=== PATIENT | male | born 1940 | race Caucasian/White ===

== ENCOUNTER → 2017-05-01 | Outpatient (CLI) | payer MEDICARE, BC, SELFPAY | PROVIDERS: Visit Provider Internal Medicine | DX: R10.11 Right upper quadrant pain (principal); R05 Cough; J44.9 Chronic obstructive pulmonary disease, unspecified | CPT/HCPCS: 36415; 71020; 80053; 82150; 85025 ==

== ENCOUNTER → 2017-07-19 18:01 | Outpatient (REF) | payer MEDICARE, BC, SELFPAY ==
[2017-07-19 19:35] LABS: Uric Acid 5.6 mg/dL (2.6-7.2)
== END ==
LOC: LAB 18:01
PROVIDERS: Visit Provider Internal Medicine
DX: M10.9 Gout, unspecified (principal)
CPT/HCPCS: 84550

== ENCOUNTER → 2018-05-14 10:01 | Outpatient (CLI) | payer MEDICARE, BC, SELFPAY ==
--- NOTE | 2018-05-14 10:16 | CT_ITS ---
CT abdomen pelvis w con CLINICAL INDICATION: Right upper quadrant pain, indigestion, elevated pancreatic enzymes ITS.REASON: ABD PAIN, ELEVATED PANCREAS ENZYMES ORDERING PHYSICIAN: Clark Santillan PATIENT AGE: 77 years COMPARISON: None TECHNIQUE: 3 phase imaging is performed following contrast enhancement at 30 seconds, 60 seconds, and 5 minute delayed Axial images obtained with sagittal and coronal reformats. All CT scans at the facility use one or more dose reduction, viz: automated exposure control, ma/kV adjustment per patient size (including targeted exams where dose is matched to indication, i.e. head), or iterative reconstruction technique. PROCEDURE: Oral Contrast: Redicat IV Contrast: 75 mL of Isovue-370. FINDINGS: Lower thorax: There is a 7 mm pleural-based nodular density in the right lung base posteriorly. An additional 7 mm nodule present in the right lung base medially and posteriorly in the subpleural region. A cystic area is present in the right lung base medially 3 cm. A 5 mm nodule is present in the right lower lobe centrally. There are some other scattered smaller nodular opacities present in the lung bases. The liver, adrenal glands, and kidneys have an unremarkable appearance. There is no evidence of pancreatitis. There is a small 5 mm isodensity in the tail the pancreas best seen on series 4 image #40. This is nonspecific and too small to characterize. There has been a prior cholecystectomy. Spleen is not identified. There is a small rounded soft tissue density in the left upper quadrant at 14 mm and could represent a small splenule. Has the patient had a prior splenectomy? There are postsurgical changes of the intra-abdominal wall. Unremarkable appendix. No pelvic mass or abnormal fluid collection is evident. Prostate is slightly enlarged at 5 cm. 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 No aortic aneurysm evident. There is moderate anterior wedging at T12 with loss of height anteriorly of approximately 50%. This appears chronic. There is kyphosis at T11-T12 junction. IMPRESSION: 1. No evidence of pancreatitis. 2. 5 mm isodensity of the pancreatic tail nonspecific probably benign. Consider 6 month follow-up to confirm stability with pancreatic protocol. 3. 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 4. 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
== END ==
PROVIDERS: PCP Internal Medicine; Visit Provider Internal Medicine
DX: R10.9 Unspecified abdominal pain (principal); R74.8 Abnormal levels of other serum enzymes
CPT/HCPCS: 74177; Q9967

== ENCOUNTER → 2018-12-25 16:08 | Outpatient (CLI) | payer MEDICARE, BC, SELFPAY ==
[2018-12-25 17:29] LABS: Blood Urea Nitrogen 24 mg/dL (7-18); Creatinine,Serum 1.85 mg/dL (0.70-1.30); Estimated Glomerular Filt Rate 36 ml/min (>60); GFR (African American) 43 ML/MIN (>60)
== END ==
PROVIDERS: Visit Provider Internal Medicine
DX: Z01.818 Encounter for other preprocedural examination (principal)
CPT/HCPCS: 36415; 82565; 84520

== ENCOUNTER → 2018-12-26 09:08 | Outpatient (CLI) | payer MEDICARE, BC, SELFPAY ==
--- NOTE | 2018-12-26 09:26 | CT_ITS ---
PROCEDURE: CT CHEST WO CON CLINICAL INDICATION: RIGHT LUNG NODULE ELEVATED PANCREAS ENZYMES Pulmonary nodule follow-up COMPARISON: ABDPELW CT abdomen pelvis w con from 05/14/2018 TECHNIQUE: Axial images obtained with sagittal and coronal reformats. All CT scans at the facility use one or more dose reduction, viz: automated exposure control, ma/kV adjustment per patient size (including targeted exams where dose is matched to indication, i.e. head), or iterative reconstruction technique. FINDINGS: Atheromatous calcification noted involving the aorta and coronary arteries. Normal heart size without evidence of pericardial effusion. Aortic valve calcifications noted. There are few scattered small lymph nodes in the mediastinum. No mediastinal or hilar mass or adenopathy is evident. 4 mm noncalcified nodule right upper lobe image number 34. 4 mm noncalcified nodule within the region of the right major fissure inferiorly unchanged. 4 mm nodule right middle lobe inferiorly unchanged. 7 mm subpleural nodular opacity right lung base posteriorly unchanged subpleural nodular opacity superior segment left lower lobe medially 8 mm not imaged previously. PE 4 mm noncalcified nodule left upper lobe posteriorly. 4 mm noncalcified nodule in the lingula slightly more prominent possibly due to slice orientation artifact. There is a small pneumatocele in the right lung base unchanged. This measures 3 cm. No effusions or infiltrates. IMPRESSION: There are scattered parenchymal and subpleural pulmonary nodules most of which do not appear significantly changed. Recommend continued 6 month follow-up as some of the nodules were not previously imaged. Coronary artery and aortic valve calcifications. Dictated by: Paul Sousa MD 12/26/2018 11:50 Signed by: <Electronically signed by Paul Sousa MD in [facility]> 12/26/2018 11:50
--- NOTE | 2018-12-26 09:26 | CT_ITS ---
Procedure: CT ABDOMEN PELVIS WO CON CLINICAL INDICATION: ELEVATED PANCREAS ENZYMES Elevated pancreatic enzymes COMPARISON: ABDPELW CT abdomen pelvis w con from 05/14/2018 TECHNIQUE: Axial images obtained with sagittal and coronal reformats. All CT scans at the facility use one or more dose reduction, viz: automated exposure control, ma/kV adjustment per patient size (including targeted exams where dose is matched to indication, i.e. head), or iterative reconstruction technique. FINDINGS: Lower thorax: Please see chest CT report performed on the same day The liver, adrenal glands, pancreas, and kidneys show no acute finding. There is mild stranding of the perinephric renal fat nonspecific. No obvious pancreatic mass or peripancreatic fluid collection. There are few small lymph nodes in the peripancreatic region and portal area nonspecific and not significantly changed. No intestinal obstruction or free air. Unremarkable appendix. There is a mild amount of retained colonic feces. Small lobular soft tissue density is present in the left upper quadrant and may represent residual splenic tissue. Prior splenectomy. Postsurgical changes are present vomiting anterior abdominal wall. Prostate is enlarged at 5 cm. Urinary bladder has an unremarkable appearance. There wedging of the T12 vertebral body unchanged from the previous exam. IMPRESSION: No acute abdominal or pelvic findings. The pancreas has an unremarkable unenhanced CT appearance. Patient was not given IV contrast due to his elevated creatinine. If further evaluation of the pancreas is desired, MRI with gadolinium enhancement may be performed.. Dictated by: Paul Sousa MD 12/26/2018 11:59 Signed by: <Electronically signed by Paul Sousa MD in [facility]> 12/26/2018 11:59
== END ==
PROVIDERS: PCP Internal Medicine; Visit Provider Internal Medicine
DX: R74.8 Abnormal levels of other serum enzymes (principal); R91.1 Solitary pulmonary nodule
CPT/HCPCS: 71250; 74176

== ENCOUNTER → 2019-03-03 10:11 | Outpatient (POV) | payer MEDICARE, BC, SELFPAY | PROVIDERS: Visit Provider Dermatology | DX: Z00.00 Encounter for general adult medical examination without abnormal findings (principal) ==

== ENCOUNTER → 2019-04-15 09:43 | Outpatient (CLI) | payer MEDICARE, BC, SELFPAY ==
[2019-04-16 18:48] LABS: Chol/HDL Ratio 2.9 (1-3.5); Cholesterol 146 mg/dL (140-200); HDL Cholesterol 51 mg/dL (27-67); LDL Cholesterol 46 mg/dL (0-130); Triglycerides 243 mg/dL (30-200); VLDL Cholesterol 49 mg/dL (0-40)
== END ==
PROVIDERS: Visit Provider Internal Medicine Cardiovascular Disease
DX: E78.5 Hyperlipidemia, unspecified (principal)
CPT/HCPCS: 36415; 80061; 80076

== ENCOUNTER → 2019-07-09 13:13 | Outpatient (CLI) | payer MEDICARE, BC, SELFPAY ==
--- NOTE | 2019-07-09 13:15 | CT_ITS ---
PROCEDURE: CT CHEST WO CON CLINICAL INDICATION: LUNG NODULE Follow-up lung nodule COMPARISON: CT CHEST WO CON from 12/26/2018 TECHNIQUE: Axial images obtained with sagittal and coronal reformats. All CT scans at the facility use one or more dose reduction, viz: automated exposure control, ma/kV adjustment per patient size (including targeted exams where dose is matched to indication, i.e. head), or iterative reconstruction technique. FINDINGS: HEART AND MEDIASTINAL STRUCTURES: There is extensive coronary artery calcification and/or stents noted. Aortic valve calcification also present. Normal heart size. No mediastinal or hilar mass or adenopathy. LUNGS AND PLEURAL SPACES: There are scattered small noncalcified nodules which are stable compared to the previous exam. No suspicious nodules are evident. There is some pleural thickening in the left lung base posteriorly not significantly changed. No new nodules are identified. No central obstructing lesions. No effusions or infiltrates. Pneumatocele is present in the right lower lobe as before BONY STRUCTURES: Degenerative changes thoracic spine UPPER ABDOMEN: Unremarkable. ADDITIONAL FINDINGS: No other significant abnormalities. IMPRESSION: Stable CT appearance of the chest. No change in the multiple small pulmonary nodules Coronary artery disease with aortic valve calcification. Dictated by: Paul Sousa MD 07/10/2019 10:11 Electronically signed by Paul Sousa MD in [facility] 07/10/2019 10:11
== END ==
PROVIDERS: PCP Internal Medicine; Visit Provider Internal Medicine
DX: R91.8 Other nonspecific abnormal finding of lung field (principal); R91.1 Solitary pulmonary nodule
CPT/HCPCS: 71250

== ENCOUNTER → 2019-07-14 13:51 | Outpatient (CLI) | payer MEDICARE, BC, SELFPAY ==
--- NOTE | 2019-07-14 13:56 | CT_ITS ---
PROCEDURE: CT ABDOMEN WO CON CLINICAL HISTORY: ABNORMAL PANCREAS TAIL, ELEVATED PANCREAS Elevated pancreatic enzymes COMPARISON: CT ABDOMEN PELVIS WO CON from 12/26/2018 CT CHEST WO CON from 07/09/2019 TECHNIQUE: Axial images obtained with sagittal and coronal reformats. All CT scans at the facility use one or more dose reduction, viz: automated exposure control, ma/kV adjustment per patient size (including targeted exams where dose is matched to indication, i.e. head), or iterative reconstruction technique. FINDINGS: There are coronary artery and aortic valve calcifications noted. Small pneumatocele is present in the right lung base medially. There are multiple parenchymal opacities in the right lower lobe. Several of these opacities in the right lung base posteriorly were not present on the previous study of 07/09/2019 and could be infectious or inflammatory changes. There is a stable 6 mm subpleural nodule in the right lower lobe posterior laterally. The liver, adrenal glands, and kidneys have an unremarkable unenhanced appearance. There has been a prior cholecystectomy and a prior splenectomy. There is an 8 mm area decreased attenuation within the tip of the tail of the pancreas suggesting a small cystic lesion. The pancreas otherwise has an unremarkable appearance No intestinal obstruction or free air. No evidence of appendicitis. Multiple abdominal wall clips noted on the left anteriorly. There is chronic wedging of the T12 vertebral body. IMPRESSION: 1. No evidence of acute pancreatitis. There may be a small cystic lesion at the lateral tip of the tail of the pancreas at 8 mm. This could be better evaluated with MRI if clinically warranted. 2. New opacities in the right lower lobe posteriorly which could be infectious or inflammatory. Neoplastic process not excluded although felt to be less likely due to the fact these were not present on 07/09/2019 Dictated by: Paul Sousa MD 07/15/2019 11:20 Electronically signed by Paul Sousa MD in [facility] 07/15/2019 11:20
== END ==
PROVIDERS: PCP Internal Medicine; Visit Provider Internal Medicine
DX: K86.89 Other specified diseases of pancreas (principal)
CPT/HCPCS: 74150

== ENCOUNTER → 2020-01-18 12:23 | Outpatient (CLI) | payer MEDICARE, BC, SELFPAY ==
--- NOTE | 2020-01-18 12:29 | CT_ITS ---
PROCEDURE: CT CHEST WO CON CLINICAL INDICATION: LUNG NODULES F/u lung nodules prior 07/09/19 COMPARISON: CT CT CHEST WO CON from 12/26/[address] CHEST WO CON from 07/09/2019 TECHNIQUE: Axial images obtained with sagittal and coronal reformats. All CT scans at the facility use one or more dose reduction, viz: automated exposure control, ma/kV adjustment per patient size (including targeted exams where dose is matched to indication, i.e. head), or iterative reconstruction technique. FINDINGS: There has been an interval TAVR. Coronary artery calcifications and/or stents are present. There are scattered small mediastinal lymph nodes. Mitral valve annular calcifications noted. Scattered small nodes are present in the axilla. There are scattered subpleural and parenchymal pulmonary nodules once again noted which do not appear significantly changed. No new nodules are evident. No effusions or infiltrates. Right basilar pneumatocele once again noted unchanged. Suspect COPD Upper abdominal images show prior cholecystectomy. There is chronic wedging of T12 not significantly changed. IMPRESSION: 1. Stable bilateral pulmonary nodules. 2. Interval TAVR 3. No acute finding Dictated by: Paul Sousa MD 01/19/2020 08:24 Paul Sousa MD in [facility] 01/19/2020 08:24
== END ==
PROVIDERS: PCP Internal Medicine; Visit Provider Internal Medicine
DX: R91.1 Solitary pulmonary nodule (principal)
CPT/HCPCS: 71250

== ENCOUNTER 2020-12-27 10:50 | Emergency (ER) | payer MEDICARE, BC, SELFPAY ==
[2020-12-27 11:20] VITALS: BP 107/63; PULSE 68; RESP 16; TEMP 36.9; O2SAT 96; BMI 28.8
--- NOTE | 2020-12-27 11:36 | XR_ITS ---
PROCEDURE: XR CHEST PORTABLE CLINICAL HISTORY: cough COMPARISON: DX CXR CHEST(2 VIEWS-NOT PORTABLE) from 05/01/[address] CHEST WO CON from 01/18/2020 FINDINGS: There is mild cardiomegaly without failure. Atelectatic changes are present in the left lung base. Mild pleural thickening versus skin fold artifact in the right lower lung zone laterally probably unchanged given difference in inspiration. No acute bony abnormalities. IMPRESSION: Mild left lower lobe atelectasis with cardiomegaly Dictated by: Paul Sousa MD 12/27/2020 12:33 Paul Sousa MD in [facility] 12/27/2020 12:35
--- NOTE | 2020-12-27 11:38 | [facility].EDGENADL ---
ED Disposition Clinical Impression: COVID-19 Disposition: Home, Self-Care Condition on Discharge: Fair Instructions: DI for COVID-19 (Suspected or Confirmed ) Additional Instructions: You have been evaluated for generalized malaise, cough. Diagnosed with COVID-19. Please call your primary care doctor for follow-up. You may benefit from an infusion of monoclonal antibody. Continue taking steroids as prescribed. Return to the emergency department at once for any new or worsening symptoms. Referrals: Clark Santillan [Primary Care Provider] - Time of Disposition: 14:04 - Critical Care Critical Care Time: No Attestation: On 12/27/20, the high probability of a clinically significant, sudden or life threatening deterioration of the following system(s) required my full and direct attention, intervention and personal management. The time I documented below is in addition to time spent performing reported procedures but includes the following listed in this critical care notation. Medical Decision Making - Medical Records Medical records reviewed: Yes: I reviewed the patient's medical records. - Beka Inquiry Pt receiving controlled substance: No Vital Signs: 12/27/20 11:20 Temperature 98.4 F Temperature Source Oral Pulse Rate [Left Radial] 68 Respiratory Rate 16 Blood Pressure [Left Arm] 107/63 L Blood Pressure Mean [Left Arm] 77 Blood Pressure Source [Left Arm] Automatic Cuff Blood Pressure Position [Left Arm] Sitting 02 Sat by Pulse Oximetry 96 Oxygen Delivery Method Room Air - Lab Data Lab Results 12/27/20 12:10: WBC 13.9 H, RBC 4.49 L, Hgb 15.0, Hct 46.2, MCV 102.7 H, MCH 33.4 H, MCHC 32.5, RDW 14.2, Plt Count 348, MPV 9.0, Neut % (Auto) 82.8 H, Lymph % (Auto) 12.0, Finney % (Auto) 4.9, Eos % (Auto) 0.1, Baso % (Auto) 0.2, Neut # (Auto) 11.5 H, Lymph # (Auto) 1.7, Finney # (Auto) 0.7, Eos # (Auto) 0.0, Baso # (Auto) 0.0 12/27/20 12:10: Sodium 134 L, Potassium 5.1, Chloride 104, Carbon Dioxide 20 L, Anion Gap 15.1 H, BUN 36 H, Creatinine 1.80 H, Estimated Creat Clear 40, Estimated GFR 36 L, Est GFR ( Amer) 44 L, Glucose 168 H, Calcium 8.8, Total Bilirubin 0.3, AST 32, ALT 19, Alkaline Phosphatase 83, Total Protein 7.3, Albumin 3.8, Globulin 3.5 H, Albumin/Globulin Ratio 1.1 12/27/20 12:10: SARS-CoV-2 (PCR) Detected A, Influenza A Untype (PCR) Not detected, Influenza Type B (PCR) Not detected Result diagrams: 12/27/20 12:10 12/27/20 12:10 Orders (Tests/Meds): ORDERS Category Date Time Status EKG Request [ECG Request by /Geetha] Stat Y 12/27/20 11:36 Ordered - Radiology Data #1 Image(s): Chest Image Reviewed: Yes I reviewed the patient's radiology results, Yes I reviewed the patient's radiology image IMPRESSION: Mild left lower lobe atelectasis with cardiomegaly Medical Decision Narrative: In summary this is an 80-year-old male presenting to the emergency department with cough, chest congestion, shortness of breath. Patient clinically stable on arrival. He appears to feel unwell, but nontoxic. Concern for COVID-19, pneumonia, bronchitis, upper respiratory infection. Will obtain CBC, CMP, Covid test, chest x-ray. Labs show elevated white blood cell count at 14,000. Neutrophil predominance. Creatinine elevated at 1.8. Patient has chronic kidney disease and his creatinine was 1.85 two years ago. Chest x-ray shows no focal opacity or multifocal pneumonia. Covid positive. On reassessment patient is tolerating oral intake. Continues to have generalized malaise, but vital signs are stable. Will place referral for monoclonal antibody infusion. Close PCP follow-up. Continue taking steroids. General Adult HPI - General Stated complaint: soa, cough Time Seen by Provider: 12/27/20 11:38 Mode of Arrival: Ambulatory Source of Information: Patient Limitations: No Limitations - History of Present Illness HPI narrative: 80-year-old male presenting to the emergency department
[2020-12-27 12:36] LABS: Influenza A, PCR Not Detected (NotDetected); Influenza B, PCR Not Detected (NotDetected)
[2020-12-27 12:48] LABS: Basophils % 0.2 % (0.1-2.0); Eosinophils % 0.1 % (0.1-12.0); Hematocrit 46.2 % (42.0-52.0); Lymphocytes # 1.7 K/mm3 (0.7-4.5); Mean Corpuscular HGB Conc 32.5 g/dL (31.8-35.4); Mean Corpuscular Hemoglobin 33.4 pg (27.0-31.2); Mean Corpuscular Volume 102.7 fl (80-94); Monocytes # 0.7 K/mm3 (0.1-1.0); Monocytes % 4.9 % (1.7-9.3); Neutrophils # 11.5 K/mm3 (1.8-7.8); Neutrophils % 82.8 % (37.0-80.0); Platelet Count 348 K/mm3 (142-424); Red Blood Count 4.49 M/mm3 (4.60-6.20); Red Cell Distribution Width 14.2 % (11.5-17.5); White Blood Count 13.9 K/mm3 (4.8-10.8)
[2020-12-27 12:59] LABS: Coronavirus 19, PCR Detected (NotDetected)
[2020-12-27 13:15] LABS: Chloride 104 mmol/L (98-107); Potassium 5.1 mmoL/L (3.5-5.1); Sodium 134 mmol/L (136-145)
[2020-12-27 13:18] LABS: Alanine Aminotransferase 19 U/L (12-78); Albumin Level 3.8 g/dl (3.5-5.0); Albumin/Globulin Ratio 1.1 (1.1-1.8); Alkaline Phosphatase 83 U/L (38-126); Anion Gap 15.1 mEq/L (5-15); Aspartate Amino Transferase 32 U/L (17-59); Bilirubin,Total 0.3 mg/dl (0.2-1.3); Blood Urea Nitrogen 36 mg/dl (9-20); Calcium 8.8 mg/dl (8.4-10.2); Carbon Dioxide 20 mmol/L (22.0-30.0); Creatinine Clearance Estimated 40 mL/min (50-200); Estimated Glomerular Filt Rate 36 ml/min (>60); GFR (African American) 44 ML/MIN (>60); Globulin 3.5 g/dL (1.3-3.2); Glucose 168 mg/dl (74-100); Total Protein,Serum 7.3 g/dl (6.3-8.2)
[2020-12-27 14:47] VITALS: BP 115/73; PULSE 58; RESP 18; TEMP 36.4; O2SAT 95
== END 2020-12-27 14:50 | disposition home or self-care (01) ==
LOC: UTC 10:54 → ER 11:19
PROVIDERS: Emergency Provider Emergency Medicine; PCP Internal Medicine
DX: U07.1 COVID-19 (principal)
CPT/HCPCS: 71045; 80053; 85025; 99283; U0003

== ENCOUNTER 2020-12-28 10:14 | Outpatient (CLI) | payer MEDICARE, BC, SELFPAY ==
[2020-12-28] VITALS (8 sets, daily range): BP systolic 124–141; BP diastolic 68–80; PULSE 70–82; RESP 16–20; TEMP 36.9; O2SAT 91–94
== END 2020-12-28 12:45 | disposition home or self-care (01) ==
PROVIDERS: PCP Internal Medicine; Visit Provider Internal Medicine
DX: U07.1 COVID-19 (principal)
CPT/HCPCS: 96365

== ENCOUNTER → 2021-03-08 14:38 | Outpatient (CLI) | payer MEDICARE, BC, SELFPAY ==
--- NOTE | 2021-03-08 14:41 | CT_ITS ---
PROCEDURE: CT CHEST WO CON CLINICAL INDICATION: LUNG NODULES COMPARISON: CT CT CHEST WO CON from 01/18/2020 TECHNIQUE: Axial images obtained with sagittal and coronal reformats. All CT scans at the facility use one or more dose reduction, viz: automated exposure control, ma/kV adjustment per patient size (including targeted exams where dose is matched to indication, i.e. head), or iterative reconstruction technique. FINDINGS: HEART AND MEDIASTINAL STRUCTURES: Small mediastinal lymph nodes are present. There is coronary artery calcification with stents present. Prior TAVR. No evidence of aortic aneurysm. LUNGS AND PLEURAL SPACES: Multifocal a bilateral areas of ground-glass attenuation with scattered atelectatic changes are present mainly in the upper lobes.. Scattered subpleural and parenchymal nodules are once again noted unchanged. There is some mild pleural thickening in the left lower lobe posterior laterally unchanged. Small pneumatocele in the right lower lobe posterior medially is stable. No new nodules identified. 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 Postsurgical changes abdominal wall anteriorly on the left. ADDITIONAL FINDINGS: Small nodes are present in the axilla IMPRESSION: 1. Interval development of multifocal ground-glass opacities mainly in the upper lobes on both sides. Covid19 pneumonia would be considered. Other etiologies not excluded. 2. No change in the small bilateral pulmonary nodules. Dictated by: Paul Sousa MD 03/09/2021 08:25 Paul Sousa MD in [place] 03/09/2021 08:25
== END ==
PROVIDERS: PCP Internal Medicine; Visit Provider Internal Medicine
DX: R91.1 Solitary pulmonary nodule (principal)
CPT/HCPCS: 71250

== ENCOUNTER 2021-05-08 14:27 | Emergency (ER) | payer MEDICARE, BC, SELFPAY ==
[2021-05-08 14:46] VITALS: BP 167/86; PULSE 64; RESP 19; TEMP 36.5; O2SAT 96; BMI 29.5
--- NOTE | 2021-05-08 15:08 | [facility].EDGENADL ---
ED Disposition Clinical Impression: Bitten by erika Qualifiers: Encounter type: initial encounter Qualified Code(s): W55.51XA - Bitten by erika, initial encounter Disposition: Home, Self-Care Condition on Discharge: Good Instructions: Animal Bites Additional Instructions: You have been given a prescription for antibiotics. Please take as prescribed. Please continue to keep your wound clean and dry and please keep a close eye on your wound for infection. Be advised that you will need further rabies vaccine on day 3, 7 and 14. If your condition worsens or any other concerns arise, please return to the emergency department. Referrals: Clark Santillan [Primary Care Provider] - - Critical Care Critical Care Time: No Attestation: On 05/08/21, the high probability of a clinically significant, sudden or life threatening deterioration of the following system(s) required my full and direct attention, intervention and personal management. The time I documented below is in addition to time spent performing reported procedures but includes the following listed in this critical care notation. Medical Decision Making - Medical Records Medical records reviewed: Yes: I reviewed the patient's medical records. - Beka Inquiry Pt receiving controlled substance: No Vital Signs: 05/08/21 14:46 Temperature 97.7 F Temperature Source Oral Pulse Rate [Right Radial] 64 Respiratory Rate 19 Blood Pressure [Right Arm] 167/86 H Blood Pressure Mean [Right Arm] 113 Blood Pressure Source [Right Arm] Automatic Cuff Blood Pressure Position [Right Arm] Sitting 02 Sat by Pulse Oximetry 96 Oxygen Delivery Method Room Air Orders (Tests/Meds): ED MEDICATIONS Discontinued Medications Generic Name Dose Route Start Last Admin Trade Name Freq PRN Reason Stop Dose Admin Rabies Immune Globulin 1,760 unit 05/08/21 15:14 05/08/21 16:00 Rabies Immune Globulin/Pf 300 Unit/Ml Vial IM 05/08/21 15:15 1,760 unit ONCE ONE Administration Rabies Vaccine 2.5 unit 05/08/21 15:14 05/08/21 15:47 Rabies Vaccine (Pcec)/Pf 2.5 Unit Vial IM 05/08/21 15:15 2.5 unit .ONCE ONE Administration Tetanus/Diphtheria Toxoids 0.5 ml 05/08/21 14:52 05/08/21 15:57 Tetanus-Diphth Toxoid, Adult 0.5ml Syr IM 05/08/21 14:53 0.5 ml .ONCE ONE Administration Medical Decision Narrative: Patient is an 80-year-old male presenting with a chief complaint of recurrent bite to the left index finger. Differential diagnosis includes, but is not limited to, underlying fracture, soft tissue injury, penetrating trauma, exposure to rabies and tetanus. On initial exam, patient is hemodynamically stable and nontoxic-appearing. Patient was evaluated with x-ray of his left hand and given rabies prophylaxis including immunoglobulin. He was given Rx for augmentin and advised that he will require further rabies prophylaxis at day 3, 7 and 14. Patient was counseled on wound care, given strict return precautions to monitor for infection and discharged in stable condition. General Adult HPI - General Chief complaint: Animal Bite Stated complaint: a/o racoon bit left middle finger Time Seen by Provider: 05/08/21 14:45 Mode of Arrival: Ambulatory Limitations: No Limitations Description of Symptoms (Recalled from ER Triage Doc. by RN): Pt stated that he was trying to get a racoon out of a cage and it bit her left middle finger, and took his finger nail off. - History of Present Illness HPI narrative: Patient is an 80-year-old male with past medical history significant for diabetes is presenting for chief complaint of raccoon bite left index finger approximately 3 hours prior to presentation. Patient states he does not remember his last tetanus shot and suffered a penetrating injury to the finger pad of the left index finger. Associated symptoms include pain and injury to the fingernail. He denies any other injuries. - Related Data Allergies Allergy/A
--- NOTE | 2021-05-08 15:13 | XR_ITS ---
FINAL REPORT CLINICAL HISTORY: r/o fx raccoon but end of 3rd finger FINDINGS: LEFT HAND FINDINGS: 2 views show no evidence of an acute, displaced fracture or dislocation. 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 There are mild vascular calcifications. The soft tissues are unremarkable. IMPRESSION: No acute bony abnormality. Reviewed, Interpreted and Dictated by Walter Jarrett MD Transcribed by Gaby Castaneda Authenticated by Walter Jarrett MD on 05/08/2021 04:57:41 PM [facility]
[2021-05-08 17:26] VITALS: BP 177/98; PULSE 60; RESP 19; TEMP 36.9; O2SAT 95
== END 2021-05-08 17:26 | disposition home or self-care (01) ==
PROVIDERS: Emergency Provider Emergency Medicine; PCP Internal Medicine
DX: S61.331A Puncture wound without foreign body of left index finger with damage to nail, initial encounter (principal); W55.51XA Bitten by raccoon, initial encounter; Z23 Encounter for immunization
CPT/HCPCS: 73120; 90375; 90471; 90675; 90714; 99282

== ENCOUNTER 2021-05-11 09:05 | Outpatient (CLI) | payer MEDICARE, BC, SELFPAY ==
[2021-05-11 09:55] VITALS: BP 142/73; PULSE 80; RESP 18; TEMP 36.8; O2SAT 98
== END 2021-05-11 09:55 | disposition home or self-care (01) ==
LOC: INF 09:07
PROVIDERS: PCP Internal Medicine; Visit Provider Student in an Organized Health Care Education/Training Program
DX: S61.301A Unspecified open wound of left index finger with damage to nail, initial encounter (principal); W55.51XA Bitten by raccoon, initial encounter; Z29.14 Encounter for prophylactic rabies immune globulin
CPT/HCPCS: 90675; 96372

== ENCOUNTER 2021-05-15 09:26 | Outpatient (CLI) | payer MEDICARE, BC, SELFPAY ==
[2021-05-15 09:47] VITALS: BP 136/79; PULSE 62; RESP 18; TEMP 36.6; O2SAT 98
== END 2021-05-15 09:47 | disposition home or self-care (01) ==
LOC: INF 09:27
PROVIDERS: PCP Internal Medicine; Visit Provider Student in an Organized Health Care Education/Training Program
DX: S61.301A Unspecified open wound of left index finger with damage to nail, initial encounter (principal); W55.51XA Bitten by raccoon, initial encounter; Z29.14 Encounter for prophylactic rabies immune globulin
CPT/HCPCS: 90675; 96372

== ENCOUNTER 2021-05-22 09:46 | Outpatient (CLI) | payer MEDICARE, BC, SELFPAY ==
[2021-05-22 10:15] VITALS: BP 152/82; PULSE 63; RESP 18; TEMP 36.8; O2SAT 96
== END 2021-05-22 10:30 | disposition home or self-care (01) ==
PROVIDERS: PCP Internal Medicine; Visit Provider Student in an Organized Health Care Education/Training Program
DX: W55.51XA Bitten by raccoon, initial encounter; Z29.14 Encounter for prophylactic rabies immune globulin; S61.301A Unspecified open wound of left index finger with damage to nail, initial encounter
CPT/HCPCS: 90675; 96372

== ENCOUNTER → 2021-06-26 14:48 | Outpatient (CLI) | payer MEDICARE, BC, SELFPAY ==
--- NOTE | 2021-06-26 14:54 | XR_ITS ---
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 There is no acute fracture or dislocation. There is a large accessory navicular. Hammertoe deformity is noted of the second through fifth digits. Mild vascular calcifications are seen. Visualized joint spaces are normally aligned. IMPRESSION: No acute bony abnormality. Reviewed, Interpreted and Dictated by Walter Jarrett MD Transcribed by Karissa Lyman Authenticated by Walter Jarrett MD on 06/26/2021 04:07:29 PM [facility]
== END ==
PROVIDERS: PCP Internal Medicine; Visit Provider Internal Medicine
DX: M79.671 Pain in right foot (principal); M20.41 Other hammer toe(s) (acquired), right foot
CPT/HCPCS: 73630

== ENCOUNTER → 2021-09-19 14:20 | Outpatient (CLI) | payer MEDICARE, BC, SELFPAY ==
--- NOTE | 2021-09-19 14:27 | XR_ITS ---
FINAL REPORT CLINICAL HISTORY: RT ELBOW PAIN FINDINGS: RIGHT ELBOW 3 views were obtained. There is no acute fracture or dislocation. There are moderate degenerative changes. There is a small chronic calcification adjacent to the olecranon. There is a chronic calcification adjacent to the lateral epicondyle. There is a probable joint effusion. There is irregularity of the radial head that may represent sequela of prior fracture. IMPRESSION: Probable joint effusion. Moderate degenerative change with chronic calcifications. Irregularity of the radial head may represent sequela of prior fracture. Reviewed, Interpreted and Dictated by Jez Gonzales III, MD Transcribed by Aldo Bloom Authenticated by Jez Gonzales III, MD on 09/19/2021 03:41:24 PM [facility]
--- NOTE | 2021-09-19 14:27 | XR_ITS ---
FINAL REPORT CLINICAL HISTORY: RT HAND PAIN FINDINGS: 3 views of the right hand were obtained. There is no acute fracture or dislocation. There are mild and moderate degenerative changes greatest involving the triscaphe joint. Vascular calcifications are present. IMPRESSION: Mild and moderate degenerative changes. Reviewed, Interpreted and Dictated by Jez Gonzales III, MD Transcribed by Aldo Bloom Authenticated by Jez Gonzales III, MD on 09/19/2021 03:19:[address] [facility]
--- NOTE | 2021-09-19 14:27 | XR_ITS ---
FINAL REPORT CLINICAL HISTORY: RT WRIST PAIN FINDINGS: 3 views of the right wrist were obtained. There is no acute fracture or dislocation. There are mild and moderate degenerative changes greatest involving the triscaphe joint. Vascular calcifications are present. IMPRESSION: Mild and moderate degenerative changes. Reviewed, Interpreted and Dictated by Jez Gonzales III, MD Transcribed by Aldo Bloom Authenticated by Jez Gonzales III, MD on 09/19/2021 03:19:31 PM [facility]
--- NOTE | 2021-09-19 14:27 | XR_ITS ---
FINAL REPORT CLINICAL HISTORY: right forearm pain FINDINGS: 2 views of the right forearm were obtained. There is no acute fracture or dislocation. There are moderate degenerative changes at the elbow and radial aspect of the wrist. Vascular calcifications are present. IMPRESSION: Moderate degenerative change. Reviewed, Interpreted and Dictated by Jez Gonzales III, MD Transcribed by Aldo Bloom Authenticated by Jez Gonzales III, MD on 09/19/2021 03:41:[address] [facility]
== END ==
PROVIDERS: PCP Internal Medicine; Visit Provider Internal Medicine
DX: M79.601 Pain in right arm (principal); M79.631 Pain in right forearm; M25.521 Pain in right elbow
CPT/HCPCS: 73080; 73090; 73110; 73130

== ENCOUNTER → 2022-01-24 14:25 | Outpatient (CLI) | payer MEDICARE, BC, SELFPAY ==
--- NOTE | 2022-01-24 14:30 | CT_ITS ---
FINAL REPORT TECHNIQUE: Axial images through the abdomen and pelvis were performed without contrast. This study was performed with techniques to keep radiation doses as low as reasonably achievable, (ALARA). Individualized dose reduction techniques using automated exposure control or adjustment of mA and/or kV according to the patient's size were employed. CLINICAL HISTORY: GROSS HEMATURIA, NO PAIN COMPARISON: 12/26/2018 FINDINGS: ABDOMEN: There is bulla or pneumatocele in the right lung base. There is stable pleural and parenchymal scarring at the left base. The heart size is normal. The liver is homogeneous. The gallbladder is absent. The spleen is identified, presumably surgically absent. No adrenal mass is identified. The aorta is normal in caliber. There is no significant free fluid or adenopathy. There is no nephrolithiasis. There is no hydronephrosis. PELVIS: The appendix is unremarkable. There is heterogeneous debris in the dependent portion of the urinary bladder, probably due to clot or hemorrhage. Finding is well seen on images 89-93 of series 3. There are bilateral L5 pars defects. There is no significant free fluid or adenopathy. IMPRESSION: Heterogeneous debris in the urinary bladder probably related to hemorrhage. Recommend urologic evaluation and cystoscopy. Reviewed, Interpreted and Dictated by Walter Jarrett MD Transcribed by Chelo Matthew Authenticated and [facility]
== END ==
PROVIDERS: PCP Internal Medicine; Visit Provider Internal Medicine
DX: R31.0 Gross hematuria (principal)
CPT/HCPCS: 74176

== ENCOUNTER 2022-02-20 13:56 | Observation (INO) | payer MEDICARE, BC, SELFPAY ==
[2022-02-20] VITALS (10 sets, daily range): BP systolic 148–190; BP diastolic 76–122; PULSE 47–69; RESP 18–20; TEMP 36.6–36.7; O2SAT 92–100; BMI 28.1; BMI 28.4
--- NOTE | 2022-02-20 14:12 | XR_ITS ---
FINAL REPORT CLINICAL HISTORY: FALL FINDINGS: Left hip Two views were obtained. There is no acute fracture or dislocation. There are mild degenerative changes of the left hip. Vascular calcification is identified. IMPRESSION: No acute process. If symptoms are severe or persist, CT or MR may be helpful. Reviewed, Interpreted and Dictated by Jez Gonzales III, MD Transcribed by Chelo Matthew Authenticated and [facility]
--- NOTE | 2022-02-20 14:21 | PC.NURSE ---
DR. VILLALTA AT BEDSIDE FOR EVALUATION
--- NOTE | 2022-02-20 14:36 | PC.NURSE ---
PT TO XR AT THIS TIME
--- NOTE | 2022-02-20 14:40 | HMH.EDFALL ---
Discharge Plan Disposition Patient Disposition: Admitted as Observation Condition: Fair Chief Complaint: Fall Prescriptions Prescriptions: No Action amoxicillin-pot clavulanate 1 EACH tablet 1 tab PO Q12H 10 Days Qty: 20 0RF Referrals Follow up/Referrals: Clark Santillan MD [Primary Care Provider] - See instructions Clinical Impressions Clinical Impression: Tear of gluteus nat muscle Discharge ED Provider: Tristan Rush Fall HPI General Chief Complaint: Fall Stated Complaint: fall Time Seen by Provider: 02/20/22 14:00 Mode of Arrival: EMS Limitations: No Limitations Description of Symptoms (Recalled from ER Triage Doc. by RN): FALL WITH PAIN TO LEFT HIP/BUTTOCKS ABOUT 1230 History of Present Illness HPI Narrative: Patient is a 81-year-old male who presents after a fall. He states that he was getting out of his truck when he subsequently fell onto his left hip. He states that he was able to ambulate afterwards but he got in his truck to drive home. He says by the time he got home the pain was so bad that he was not able to ambulate. He denies any numbness or tingling into his extremities. Denies any back pain. He locates it on the left side of his hip it does not move from that area. He says that his pain is worse with range of motion of his left hip. Denies any bowel or bladder incontinence. Denies any saddle anesthesia. Related Data Previous Rx's Medication Instructions Recorded amoxicillin 875 mg-potassium 1 tab PO Q12H 10 days #20 tabs 05/08/21 clavulanate 125 mg tablet Allergies Allergy/AdvReac Type Severity Reaction Status Date / Time sulfamethoxazole Allergy Unknown Verified 05/14/18 11:12 [From Bactrim] allergy reaction trimethoprim [From Bactrim] Allergy Unknown Verified 05/14/18 11:12 allergy reaction PFSH [facility] Medical History (Updated 02/20/22 @ 19:13 by Tristan Rush MD) Diabetes Social History (Updated 02/20/22 @ 14:28 by Liyah Charles RN) Smoking Status: Never smoker alcohol intake: never current occupational status: retired Travel in the last 8 weeks: None ROS Obtained: Yes All systems reviewed & no additional complaints except as documented A 14 point review system was obtained otherwise negative except per HPI Physical Exam General General appearance: alert and in no apparent distress Head Head exam: atraumatic, normocephalic and normal inspection Eye Eye exam: Present normal appearance, PERRL and EOMI ENT ENT exam: Present normal exam, normal oropharynx, mucous membranes moist, TM's normal bilaterally and normal external ear exam Neck Neck exam: Present normal inspection, full ROM and trachea midline; Absent meningismus or lymphadenopathy Chest Chest inspection: Present normal inspection and symmetric chest wall rise; Absent tenderness Respiratory Respiratory exam: Present normal lung sounds bilaterally; Absent respiratory distress Cardiovascular Cardiovascular exam: Present regular rate and normal rhythm; Absent JVD Abdominal Exam Abdominal exam: Present soft and normal bowel sounds; Absent distention, tenderness or guarding Extremities Exam Extremities exam: Present normal inspection, full ROM and normal capillary refill; Absent calf tenderness Expanded Lower Extremity Exam Left: Hip/Pelvis exam: Present tenderness and swelling; Absent normal inspection (Left hip hematoma), full ROM (Limited due to pain), external rotation, internal rotation or shortening of leg Knee exam: Present normal inspection and full ROM; Absent tenderness or swelling Lower leg exam: Present normal inspection and full ROM; Absent tenderness or swelling Ankle exam: Present normal inspection and full ROM; Absent tenderness or swelling Back Exam Back exam: Present normal inspection; Absent tenderness Neurological Exam Neurological exam: Present alert and oriented X3 Psychiatric Psychiatric exam: Present normal
--- NOTE | 2022-02-20 14:47 | PC.NURSE ---
PT RETURNED FROM XR
--- NOTE | 2022-02-20 16:23 | PC.NURSE ---
ATTEMPTED TO AMBULATE PT, DID NOT TOLERATE WELL, ED MD MADE AWARE. PT REPOSITIONED BACK TO BED
--- NOTE | 2022-02-20 16:30 | CT_ITS ---
PROCEDURE INFORMATION: Exam: CT Left Lower Extremity Without Contrast, Hip Exam date and time: 02/20/2022 4:31 PM Age: 81 years old Clinical indication: Injury or trauma; Fall; Blunt trauma; Hip; Left; Additional info: Inability to ambulate TECHNIQUE: Imaging protocol: CT of the Left lower extremity without contrast was performed. Exam focused on the hip. 3D rendering (Not supervised by radiologist): MIP and/or 3D reconstructed images were created by the technologist. Radiation optimization: All CT scans at this facility use at least one of these dose optimization techniques: automated exposure control; mA and/or kV adjustment per patient size (includes targeted exams where dose is matched to clinical indication); or iterative reconstruction. 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 No comparative images of the right SI joint. Mild degenerative changes involving the left hip joint. Soft tissues: Slight indistinctness of the left gluteal muscle bundles. Edematous changes could not be excluded. IMPRESSION: 1. No evidence of acute osseous injury. 2. Soft tissue swelling involving the left gluteal muscle bundles. Edematous changes and are partial tearing could not be excluded. Consider follow-up with magnetic resonance imaging if appropriate.
--- NOTE | 2022-02-20 16:33 | PC.NURSE ---
PT TO CT AT THIS TIME
--- NOTE | 2022-02-20 19:06 | PC.NURSE ---
ATTEMPTED TO AMBULATE PT. PT STATES HE IS NOT GOING TO BE ABLE TO CARE FOR HIMSELF AT HOME AND HAS NO ONE THAT CAN ASSIST HIM. NOTIFIED
[2022-02-20 19:13] LABS: Coronavirus 19, PCR Not Detected (NotDetected); Influenza A, PCR Not Detected (NotDetected); Influenza B, PCR Not Detected (NotDetected)
--- NOTE | 2022-02-20 19:13 | PC.NURSE ---
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
--- NOTE | 2022-02-20 20:17 | EXP.HP ---
[facility] Medical History Diabetes Social History Smoking Status: Never smoker alcohol intake: never current occupational status: retired Travel in the last 8 weeks: None Meds Home Medications and Allergies Home Medications Medication Instructions Recorded Confirmed Type allopurinol 100 mg tablet 100 mg PO DAILY GOUT 02/20/22 02/20/22 History aspirin 81 mg tablet,delayed 81 mg PO DAILY Heart disease 02/20/22 02/20/22 History release benazepril 40 mg tablet (Lotensin) 40 mg PO DAILY High blood pressure 02/20/22 02/20/22 History clopidogrel 75 mg tablet 75 mg PO DAILY Heart disease 02/20/22 02/20/22 History empagliflozin 25 mg tablet 25 mg PO DAILY Diabetes 02/20/22 02/20/22 History (Jardiance) metformin 1,000 mg tablet 1,000 mg PO DAILY Diabetes 02/20/22 02/20/22 History New Prescriptions to Start Prescriptions: Allergies Allergy/AdvReac Type Severity Reaction Status Date / Time sulfamethoxazole Allergy Unknown Verified 05/14/18 11:12 [From Bactrim] allergy reaction trimethoprim [From Bactrim] Allergy Unknown Verified 05/14/18 11:12 allergy reaction Exam Data for Last 24 hours Vital signs and Labs for Last 24 Hours: Temp Pulse Resp BP Pulse Ox 98.0 F 56 L 18 148/122 H 100 02/20/22 13:56 02/20/22 16:31 02/20/22 13:56 02/20/22 16:31 02/20/22 16:31 Laboratory Results - last 24 hr 02/20/22 19:08: SARS-CoV-2 (PCR) Not detected, Influenza A Untype (PCR) Not detected, Influenza Type B (PCR) Not detected I & O for Last 24 hours: Intake & Output 02/17/22 02/18/22 02/19/22 02/20/22 23:59 23:59 23:59 23:59 Weight 83.915 kg
--- NOTE | 2022-02-20 20:23 | EXP.HP ---
History of Present Illness *Admission Date: 02/20/22 *History of present illness: Mr. Forest Pollock is a 81 [id number] with a past medical history that is positive for Diabetes, CAD, HTN and Gout. He presents to [facility] today through the ER secondary to pain and difficulty ambulating secondary to a fall that occurred at ground level at his home today. He reports that he slipped on some gravels on black top and hit his left hip. The event resulted in extreme pain and difficulty ambulating so he came into the ER for evaluation. In the ER the patient underwent imaging of the bilateral hips that showed no acute findings. A CT of the left hip was performed and it showed soft tissue swelling involving the left gluteal bundles. The patient was unable to walk in the ER. The patient is being admitted for pain control. PT/OT will be consulted to see in the morning. The plan of care was discussed with the patient and his son prior to admission, both verbalized understanding and agreement with the plan of care. [facility] Medical History Diabetes Social History Smoking Status: Never smoker alcohol intake: never current occupational status: retired Travel in the last 8 weeks: None Review of Systems Review of Systems Review of systems:: pertinent systems reviewed and negative unless documented below Constitutional Constitutional: Reports body ache(s) Eyes Eyes: Reports system reviewed and no additional complaints, except as documented ENT Ears, Nose, Mouth, and Throat: Reports system reviewed and no additional complaints, except as documented *Cardiovascular Cardiovascular: Reports system reviewed and no additional complaints, except as documented *Respiratory Respiratory: Reports system reviewed and no additional complaints, except as documented *Gastrointestinal Gastrointestinal: Reports system reviewed and no additional complaints, except as documented *Genitourinary Genitourinary: Reports system reviewed and no additional complaints, except as documented *Musculoskeletal Musculoskeletal: Reports abnormal gait, Reports arthralgias and Reports limited range of motion Integumentary/Breasts Skin/Breast: Reports erythema Comments: Left Hip redness and swelling *Neurologic Neurologic: Reports abnormal gait Psychiatric Psychiatric: Reports system reviewed and no additional complaints, except as documented Endocrine Endocrine: Reports system reviewed and no additional complaints, except as documented Hematologic/Lymphatic Hematologic/Lymphatic: Reports system reviewed and no additional complaints, except as documented Allergic/Immunologic Allergic/Immunologic: Reports system reviewed and no additional complaints, except as documented Meds Home Medications and Allergies Home Medications Medication Instructions Recorded Confirmed Type allopurinol 100 mg tablet 100 mg PO DAILY GOUT 02/20/22 02/20/22 History aspirin 81 mg tablet,delayed 81 mg PO DAILY Heart disease 02/20/22 02/20/22 History release benazepril 40 mg tablet (Lotensin) 40 mg PO DAILY High blood pressure 02/20/22 02/20/22 History clopidogrel 75 mg tablet 75 mg PO DAILY Heart disease 02/20/22 02/20/22 History empagliflozin 25 mg tablet 25 mg PO DAILY Diabetes 02/20/22 02/20/22 History (Jardiance) metformin 1,000 mg tablet 1,000 mg PO DAILY Diabetes 02/20/22 02/20/22 History New Prescriptions to Start Prescriptions: Allergies Allergy/AdvReac Type Severity Reaction Status Date / Time sulfamethoxazole Allergy Unknown Verified 05/14/18 11:12 [From Bactrim] allergy reaction trimethoprim [From Bactrim] Allergy Unknown Verified 05/14/18 11:12 allergy reaction Exam Data for Last 24 hours Vital signs and Labs for Last 24 Hours: Temp Pulse Resp BP Pulse Ox 98.0 F 56 L 18 148/122 H 100 02/20/22
--- NOTE | 2022-02-20 22:14 | PC.NURSE ---
PT ARRIVED TO FLOOR VIA STRETCHER AT THIS TIME
[2022-02-20 22:56] LABS: POC Glucose,Bedside 180 (70-110)
[2022-02-21 04:00] VITALS: BP 198/89; PULSE 68; RESP 20; TEMP 36.5; O2SAT 96
--- NOTE | 2022-02-21 05:11 | PC.NURSE ---
pt has been very uncomfortable this shift, hospitalist notified twice of PRN meds not relieving pain and put new orders in, hypertensive at 0400, hospitalist felt like hypertension was from pain, left buttock is visibly swollen and tender to touch
[2022-02-21 06:00] VITALS: BMI 28.4
[2022-02-21 06:23] LABS: POC Glucose,Bedside 184 (70-110)
--- NOTE | 2022-02-21 06:27 | PC.NURSE ---
Addendum entered by Kenia Wang RN 02/21/22 07:33: pt also able to get up to BSC with an assist Original Note: pt was able to stand with assistance and use urinal this morning, stated that he felt like the toradol had really helped
[2022-02-21 07:09] LABS: Chloride 107 mmol/L (98-107); Potassium 4.5 mmoL/L (3.5-5.1); Sodium 137 mmol/L (136-145)
[2022-02-21 07:12] LABS: Alanine Aminotransferase 26 U/L (12-78); Albumin Level 3.2 g/dl (3.5-5.0); Albumin/Globulin Ratio 1.1 (1.1-1.8); Alkaline Phosphatase 83 U/L (38-126); Anion Gap 12.5 mEq/L (5-15); Aspartate Amino Transferase 42 U/L (17-59); Bilirubin,Total 0.5 mg/dl (0.2-1.3); Blood Urea Nitrogen 35 mg/dl (9-20); Calcium 8.4 mg/dl (8.4-10.2); Carbon Dioxide 22 mmol/L (22.0-30.0); Creatinine Clearance Estimated 50 mL/min (50-200); Estimated Glomerular Filt Rate 49 ml/min (>60); GFR (African American) 59 ML/MIN (>60); Globulin 2.8 g/dL (1.3-3.2); Glucose 145 mg/dl (74-100)
[2022-02-21 07:15] LABS: Basophils # 0.1 K/mm3 (0-0.2); Basophils % 0.7 % (0.1-2.0); Eosinophils # 0.2 K/mm3 (0.0-0.4); Eosinophils % 1.5 % (0.1-12.0); Hematocrit 42.6 % (42.0-52.0); Hemoglobin 13.3 g/dL (14.1-18.0); Lymphocytes # 4.3 K/mm3 (0.7-4.5); Lymphocytes % 28.8 % (10-50); Mean Corpuscular HGB Conc 31.3 g/dL (31.8-35.4); Mean Corpuscular Hemoglobin 32.8 pg (27.0-31.2); Mean Corpuscular Volume 104.8 fl (80-94); Mean Platelet Volume 8.1 fl (7.4-10.4); Monocytes % 6.8 % (1.7-9.3); Neutrophils # 9.4 K/mm3 (1.8-7.8); Neutrophils % 62.2 % (37.0-80.0); Platelet Count 402 K/mm3 (142-424); Red Blood Count 4.07 M/mm3 (4.60-6.20); Red Cell Distribution Width 14.4 % (11.5-17.5); White Blood Count 15.1 K/mm3 (4.8-10.8)
[2022-02-21 07:19] LABS: MANUAL DIFFERENTIAL MANUAL DIFFERENTIAL (MANUAL DIFF)
[2022-02-21 08:00] VITALS: BP 179/65; PULSE 65; RESP 17; TEMP 36.7; O2SAT 96
--- NOTE | 2022-02-21 08:02 | HMH.PHAINT1 ---
Pharmacy Intervention Comments: Home medication reconciliation completed using outpatient pharmacy medication fill history.
[2022-02-21 08:21] LABS: Eosinophils % 3 % (0-3); Lymphocytes % 28 % (10-50); Monocytes % 6 % (2-9); Neutrophils % 63 % (42-76); Total Cells Counted 100
[2022-02-21 08:22] LABS: Anisocytosis 1+; Hypochromasia 1+; Macrocytosis 1+; Ovalocytes 1+; Platelet Estimate Slight Increase; Poikilocytosis 1+
--- NOTE | 2022-02-21 09:11 | HMH.PTEV ---
Physical Therapy Evaluation Rehab PT IP Evaluation Start: 02/21/22 07:30 Freq: ONCE Status: Active Protocol: Document 02/21/22 09:06 MATEUS (Rec: 02/21/22 09:10 PHODAVID [id number]) Subjective/History History History Pt is 81 yowm adm to [facility] after ground level fall in driveway with resulting L gluteal injury and difficulty ambulating. He reports he lives with spouse, no steps to enter the home and was independent with all mobility and ADLs prior to adm. Subjective Subjective He reports pain 4/10 in the L gluteal region this am. He reports feeling much improved since admission as well. Rehab PT IP Eval Objective Appearance Patient Behavior Appropriate Patient Orientation Person,Place,Time Difficulty following instructions none Speech Pattern Clear Ambulation Patient Able to Ambulate Yes Ambulation Observation IP General Gait Pattern Observation Antalgic Gait Ambulation Distance (feet) 60 Ambulation Assistive Device Rolling Walker Ambulation Ability Supervision/Stand by Balance Ability to Arise Able, uses arms to help Sitting Balance Steady, safe Standing Balance Steady, wide stance Dynamic Sitting Balance Ability Good Dynamic Standing Balance Ability Good Transfers Bed Transfer Ability Contact Guard/Hand Hold Chair Transfer Ability Supervision/Stand by Sit to Stand Bed Transfer Ability Supervision/Stand by Sit to Stand Chair Transfer Ability Supervision/Stand by Rehab PT IP prob,goals,plan Problems Date of Evaluation: 02/21/22 Discharge Plan PT Discharge Plan Pt is appropriate to return home once medically stable, recommend RW for home use and home health vs outpatient therapy after D/C. G -code Required No Eval Complexity Eval Charge Codes 20065 - Moderate Complexity PHYSICIAN CERTIFICATION: I certify the specified therapy services for Forest Montoya are required, authorized, and reviewed every 30 days.
--- NOTE | 2022-02-21 09:28 | HMH.OTEV ---
OT Inpatient Evaluation Rehab OT IP Evaluation Start: 02/21/22 07:30 Freq: ONCE Status: Complete Protocol: Document 02/21/22 09:20 MYRON (Rec: 02/21/22 09:28 [id number] Rehab OT IP Assessment Subjective History Pt oriented x 3 on arrival. Pt agreeable to engage in therapy evaluation. Pt was admitted via ED on 02/20/22 due to a ground level fall while stepping out of his truck resulting in a L gluteal injury and difficulty ambulating. Prior to being in the hospital, pt lived at home with his . Pt claims he was independent with all ADLs and IADLs. 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 He did not use any type of AE during ambulation or daily activities . Subjective Pt reports 4/10 pain at this time at his left hip Objective Patient Orientation Person,Place,Birthday Upper Extremity Gross ROM WFL Bed Mobility bed mobility - supine/sit Assist Level Contact Guard/Hand Hold Transfer Training Sit/Stand Transfer Assist Level Supervision/Stand by Chair Transfer Ability Supervision/Stand by Chair Transfer Technique Sit to/from Ambulatory Chair Transfer Assistive Devices Rolling Walker Rehab OT IP prob,goals,plan Problems Date of Evaluation: 02/21/22 Rehab Potential Rehab Potential Innapropriate for Skilled Therapy Equipment Needs Assistive Devices Rolling / Wheeled Walker Discharge Plan OT Discharge Plan Pt is appropriate to return home with his once medically stable per physician . OT recommends RW upon return home to assist with functional transfers due to continued soreness at left hip . Pt is agreeable with this plan. If pt continues to have soreness upon returning home, an OT home health evaluation may be beneficial to evaluate his home environment. Eval Complexity Eval Charge
--- NOTE | 2022-02-21 09:57 | EXP.ORTH.CON ---
History of Present Illness *Admission Date: 02/20/22 *Reason for visit:: Left hip pain after fall *History of present illness: 81-year-old male who fell getting out of his truck he had some gravel on the hard top and suffered a fall onto his left hip. Was unable to bear weight came to the emergency room. CT scans obtained. [facility] Medical History Diabetes History of left heart catheterization (LHC) Hypertension Surgical History Stented coronary artery Family History Other No significant family history Social History Smoking Status: Never smoker alcohol intake: never current occupational status: retired Travel in the last 8 weeks: None Review of Systems *Cardiovascular Cardiovascular: Denies chest pain with activity and Denies dyspnea on exertion *Respiratory Respiratory: Denies dyspnea on exertion *Musculoskeletal Musculoskeletal: Reports abnormal gait *Neurologic Neurologic: Reports abnormal gait Meds Home Medications and Allergies Home Medications Medication Instructions Recorded Confirmed Type allopurinol 100 mg tablet 100 mg PO DAILY GOUT 02/20/22 02/20/22 History aspirin 81 mg tablet,delayed 81 mg PO DAILY Heart disease 02/20/22 02/20/22 History release benazepril 40 mg tablet (Lotensin) 40 mg PO DAILY Hypertension 02/20/22 02/20/22 History clopidogrel 75 mg tablet 75 mg PO DAILY coronary artery 02/20/22 02/20/22 History disease empagliflozin 25 mg tablet 25 mg PO DAILY Diabetes 02/20/22 02/20/22 History (Jardiance) metformin 1,000 mg tablet 1,000 mg PO BID Diabetes 02/20/22 02/21/22 History doxycycline monohydrate 100 mg 100 mg PO BID Infection 02/21/22 02/21/22 History tablet evolocumab 140 mg/mL subcutaneous 140 mg SQ .EVERY 2 WEEKS 02/21/22 02/21/22 History pen injector (Federico Doyle) hyperlipidemia oxazepam 10 mg capsule 10 mg PO TID Anxiety 02/21/22 02/21/22 History triamcinolone acetonide 0.1 % 1 applic topical TID PRN Rash 02/21/22 02/21/22 History topical cream New Prescriptions to Start Prescriptions: Allergies Allergy/AdvReac Type Severity Reaction Status Date / Time ceftriaxone [From Rocephin] Allergy Swelling Verified 02/20/22 22:29 of the Eye sulfamethoxazole Allergy Unknown Verified 02/20/22 22:22 [From Bactrim] allergy reaction trimethoprim [From Bactrim] Allergy Unknown Verified 02/20/22 22:22 allergy reaction Ortho Exam (Inpt) Vital signs and Labs for Last 24 Hours: Temp Pulse Resp BP Pulse Ox 98.0 F 65 17 179/65 H 96 02/21/22 08:00 02/21/22 08:00 02/21/22 08:00 02/21/22 08:00 02/21/22 08:00 Laboratory Results - last 24 hr 02/20/22 19:08: SARS-CoV-2 (PCR) Not detected, Influenza A Untype (PCR) Not detected, Influenza Type B (PCR) Not detected 02/20/22 22:34: POC Glucose 180 H 02/21/22 06:06: POC Glucose 184 H 02/21/22 06:41: Sodium 137, Potassium 4.5, Chloride 107, Carbon Dioxide 22, Anion Gap 12.5, BUN 35 H, Creatinine 1.40 H, Estimated Creat Clear 50, Estimated GFR 49 L, Est GFR ( Amer) 59, Glucose 145 H, Calcium 8.4, Total Bilirubin 0.5, AST 42, ALT 26, Alkaline Phosphatase 83, Total Protein 6.0 L, Albumin 3.2 L, Globulin 2.8, Albumin/Globulin Ratio 1.1 02/21/22 06:41: WBC 15.1 H, RBC 4.07 L, Hgb 13.3 L, Hct 42.6, MCV 104.8 H, MCH 32.8 H, MCHC 31.3 L, RDW 14.4, Plt Count 402, MPV 8.1, Neut % (Auto) 62.2, Lymph % (Auto) 28.8, Wright % (Auto) 6.8, Eos % (Auto) 1.5, Baso % (Auto) 0.7, Neut # (Auto) 9.4 H, Lymph # (Auto) 4.3, Wright # (Auto) 1.0, Eos # (Auto) 0.2, Baso # (Auto) 0.1, Total Counted 100, Neutrophils % (Manual) 63, Lymphocytes % (Manual) 28, Monocytes % (Manual) 6, Eosinophils % (Manual) 3, Platelet Estimate Slight increase, Hypochromasia 1+, Poikilocytosis 1+, Anisocyt
--- NOTE | 2022-02-21 10:01 | SW/DCPLANNER ---
Addendum entered by Angella Valerio 02/21/22 13:52: [facility] services will start tomorrow for this patient. Original Note: I called and spoke with patient's son regarding plans once medically stable for discharge. PT/OT evaluated patient this AM and recommended home with home health services and a rolling walker. Son stated that patient currently has a rolling walker at home. Patient information/order will be faxed to [facility] due to patient residing in [facility]. Patient could potentially discharge later today.
--- NOTE | 2022-02-21 11:04 | DIET.NUTRFU ---
RD interviewed patient, he has good meal intake at home. 3 meals/day, no significant wt changes. He reports that his DM is well controlled with medications and tries to watch sugar intake. Denied any GI distress. RD reviewed menu process and had no further concerns.
--- NOTE | 2022-02-21 11:34 | EXP.DC.SUM ---
General Admission date:: 02/20/22 Discharge date: 02/21/22 HPI HPI HPI: Mr. Forest Pollock is a 81 [id number] with a past medical history that is positive for Diabetes, CAD, HTN and Gout.? He presents to [facility] today through the ER secondary to pain and difficulty ambulating secondary to a fall that occurred at ground level at his home today.? He reports that he slipped on some gravels on [place] and hit his left hip.? The event resulted in extreme pain and difficulty ambulating so he came into the ER for evaluation. In the ER the patient underwent imaging of the bilateral hips that showed no acute findings.? A CT of the left hip was performed and it showed soft tissue swelling involving the left gluteal bundles.? The patient was unable to walk in the ER.? The patient is being admitted for pain control.? PT/OT will be consulted to see in the morning.? The plan of care was discussed with the patient and his son prior to admission, both verbalized understanding and agreement with the plan of care.? Hospital Course Hospital Course Hospital Course: 81-year-old male who fell at home. Sustained tear of left gluteal muscle. Developed small hematoma. Admitted overnight for observation and pain control. Orthopedics consulted and physical therapy/Occupational Therapy consulted. Appreciate their recommendations. Patient's pain improved with tramadol, will continue this at discharge for a few days. Orthopedics and PT both agreed with outpatient therapy. We will hold his Plavix until he follows up with his primary care to decrease risk for further progression of hematoma. Follow-up with PCP within a week. Plan to follow-up with orthopedics as an outpatient. Medically stable for discharge home. Patient ambulating with walker, case management consulted to assist with home health and DME. Exam Data for Last 24 hours Vital signs and Labs for Last 24 Hours: Temp Pulse Resp BP Pulse Ox 98.0 F 65 17 179/65 H 96 02/21/22 08:00 02/21/22 08:00 02/21/22 08:00 02/21/22 08:00 02/21/22 08:00 Laboratory Results - last 24 hr 02/20/22 19:08: SARS-CoV-2 (PCR) Not detected, Influenza A Untype (PCR) Not detected, Influenza Type B (PCR) Not detected 02/20/22 22:34: POC Glucose 180 H 10/19/22 06:06: POC Glucose 184 H 02/21/22 06:41: Sodium 137, Potassium 4.5, Chloride 107, Carbon Dioxide 22, Anion Gap 12.5, BUN 35 H, Creatinine 1.40 H, Estimated Creat Clear 50, Estimated GFR 49 L, Est GFR ( Amer) 59, Glucose 145 H, Calcium 8.4, Total Bilirubin 0.5, AST 42, ALT 26, Alkaline Phosphatase 83, Total Protein 6.0 L, Albumin 3.2 L, Globulin 2.8, Albumin/Globulin Ratio 1.1 02/21/22 06:41: WBC 15.1 H, RBC 4.07 L, Hgb 13.3 L, Hct 42.6, MCV 104.8 H, MCH 32.8 H, MCHC 31.3 L, RDW 14.4, Plt Count 402, MPV 8.1, Neut % (Auto) 62.2, Lymph % (Auto) 28.8, Jay % (Auto) 6.8, Eos % (Auto) 1.5, Baso % (Auto) 0.7, Neut # (Auto) 9.4 H, Lymph # (Auto) 4.3, Jay # (Auto) 1.0, Eos # (Auto) 0.2, Baso # (Auto) 0.1, Total Counted 100, Neutrophils % (Manual) 63, Lymphocytes % (Manual) 28, Monocytes % (Manual) 6, Eosinophils % (Manual) 3, Platelet Estimate Slight increase, Hypochromasia 1+, Poikilocytosis 1+, Anisocytosis 1+, Macrocytosis 1+, Ovalocytes 1+ I & O for Last 24 hours: Intake & Output 02/18/22 02/19/22 02/20/22 02/21/22 23:59 23:59 23:59 23:59 Intake Total 360 / 360 Output Total 500 / 500 Balance -140 / -140 Weight 85.139 kg 85.139 kg Constitutional Constitutional: no acute distress and cooperative *Routine HEENT Exam Head: Present normocephalic Eye: Present EOMI and PERRL ENT: Present mucous membranes moist *Routine Neck Exam Neck: Present supple; Absent lymphadenopathy *Routine Respiratory Exam Respiratory: Present CTA bilaterally *Routine Cardiovascular Exam Cardiovascular: Present RRR *Routine Abdominal Exam Abdominal: Present soft and normoactive bowel sounds; Absent tenderness *Routine Exam Patient deferre
--- NOTE | 2022-02-21 11:38 | P.EN_ITS ---
Home health [id number] encounter note Name: Forest Montoya Date of : 40 Admission date: 02/20 Date of discussion: I certify that this patient, Forest Montoya, is under my care and that I had a [id number] encounter that meets the [facility] requirements for this encounter (90 days prior to the start of care date or within 30 days after the start of care date). This svdu-os-pdsk encounter for the patient occurred on . I certify, based on my findings with the following services are medically necessary for home health services (yes when applicable) 1. Nursing: no 2. Physical therapy: YES 3. Occupational Therapy: YES 4. Speech-language pathology: no The encounter with the patient was in whole, or in part, for the following medical condition, which is the primary reason for home health care. Condition: Patient fell at home, sustained a left gluteal hematoma. Causing significant pain and difficulty with ambulation. Admitted overnight for pain control and evaluation by PT. Did well during hospitalization. My clinical findings from the encounter support the patient is homebound due to (yes when applicable): 1. Leaving home requires a considerable and taxing effort: YES 2. Absences from home are infrequent or short duration or to receive health care treatment: no 3. Medically restricted due to immunosuppression, infectious illness, risk of infection or injury: no
[2022-02-21 12:06] VITALS: BMI 28.4
[2022-02-21 12:09] LABS: POC Glucose,Bedside 120 (70-110)
--- NOTE | 2022-02-22 13:49 | CARE MANAGER ---
Spoke with patient regrading post-discharge phone interview, patient is still having some pain she states but is doing ok, no problems at this time.
== END 2022-02-21 13:06 | disposition home health service (06) ==
LOC: ER 19:13 → 2ND 19:28
PROVIDERS: Nurse Practitioner Family; Admitting Provider Internal Medicine Adolescent Medicine; Emergency Provider Student in an Organized Health Care Education/Training Program; PCP Internal Medicine; Visit Provider Internal Medicine Adolescent Medicine
DX: S76.312A Strain of muscle, fascia and tendon of the posterior muscle group at thigh level, left thigh, initial encounter (principal); E11.9 Type 2 diabetes mellitus without complications; I25.10 Atherosclerotic heart disease of native coronary artery without angina pectoris; M10.9 Gout, unspecified; Z79.84 Long term (current) use of oral hypoglycemic drugs; Z79.899 Other long term (current) drug therapy; W01.0XXA Fall on same level from slipping, tripping and stumbling without subsequent striking against object, initial encounter; Y92.014 Private driveway to single-family (private) house as the place of occurrence of the external cause; Z20.822 Contact with and (suspected) exposure to COVID-19
CPT/HCPCS: G0378; 73502; 73700; 80053; 82962; 85007; 85025; 97162; 97165; 99285; C9803; U0003; U0005

== ENCOUNTER → 2022-08-06 12:34 | Outpatient (CLI) | payer MEDICARE, BC, SELFPAY ==
[2022-08-06 13:48] LABS: Creatinine,Urine Random 44 mg/dL (Not Estab.)
[2022-08-06 13:59] LABS: Basophils # 0.1 K/mm3 (0-0.2); Basophils % 0.7 % (0.1-2.0); Eosinophils # 0.2 K/mm3 (0.0-0.4); Hematocrit 45.7 % (42.0-52.0); Hemoglobin 13.8 g/dL (14.1-18.0); Lymphocytes # 3.6 K/mm3 (0.7-4.5); Lymphocytes % 36.3 % (10-50); Mean Corpuscular HGB Conc 30.2 g/dL (31.8-35.4); Mean Corpuscular Hemoglobin 31.2 pg (27.0-31.2); Mean Corpuscular Volume 103.5 fl (80-94); Mean Platelet Volume 9.2 fl (7.4-10.4); Monocytes # 0.9 K/mm3 (0.1-1.0); Neutrophils # 5.2 K/mm3 (1.8-7.8); Platelet Count 406 K/mm3 (142-424); Red Blood Count 4.42 M/mm3 (4.60-6.20); Red Cell Distribution Width 13.9 % (11.5-17.5)
[2022-08-06 14:10] LABS: Microalbumin/Creatinine Ratio 659.5
[2022-08-06 15:12] LABS: Alanine Aminotransferase 16 U/L (12-78); Albumin Level 3.8 g/dl (3.5-5.0); Albumin/Globulin Ratio 1.4 (1.1-1.8); Alkaline Phosphatase 78 U/L (38-126); Anion Gap 12.2 mEq/L (5-15); Aspartate Amino Transferase 24 U/L (17-59); Bilirubin,Total 0.4 mg/dl (0.2-1.3); Blood Urea Nitrogen 23 mg/dl (9-20); Calcium 9.3 mg/dl (8.4-10.2); Carbon Dioxide 22 mmol/L (22.0-30.0); Chloride 105 mmol/L (98-107); Cholesterol 125 mg/dl (140-200); Estimated Glomerular Filt Rate 45 ml/min (>60); GFR (African American) 54 ML/MIN (>60); Globulin 2.7 g/dL (1.3-3.2); Glucose 125 mg/dl (74-100); HDL Cholesterol 41 mg/dl (40-60); Potassium 5.2 mmoL/L (3.5-5.1); Sodium 134 mmol/L (136-145); Total Protein,Serum 6.5 g/dl (6.3-8.2); Triglycerides 134 mg/dl (30-150); VLDL Cholesterol 27 mg/dL (0-40)
[2022-08-06 15:23] LABS: Direct LDL Cholesterol 63.52 mg/dL (100-129)
[2022-08-06 16:14] LABS: Hemoglobin A1C 8.2 % (4.0-6.0)
== END ==
PROVIDERS: PCP Internal Medicine; Visit Provider Internal Medicine
DX: I25.10 Atherosclerotic heart disease of native coronary artery without angina pectoris (principal); I10 Essential (primary) hypertension; I35.0 Nonrheumatic aortic (valve) stenosis; E11.59 Type 2 diabetes mellitus with other circulatory complications; E78.5 Hyperlipidemia, unspecified; I73.9 Peripheral vascular disease, unspecified; K86.9 Disease of pancreas, unspecified; J44.9 Chronic obstructive pulmonary disease, unspecified; Z79.84 Long term (current) use of oral hypoglycemic drugs
CPT/HCPCS: 80053; 80061; 82043; 82570; 83036; 85025

== ENCOUNTER → 2023-03-19 14:56 | Outpatient (POV) | payer MEDICARE, BC, SELFPAY | PROVIDERS: PCP Internal Medicine; Visit Provider Dermatology | DX: Z00.00 Encounter for general adult medical examination without abnormal findings (principal) ==

== ENCOUNTER 2023-12-04 16:31 | Outpatient (CLI) | payer MEDICARE, BC, SELFPAY ==
[2023-12-04 17:06] LABS: Basophils # 0.1 K/mm3 (0-0.2); Basophils % 0.8 % (0.1-2.0); Eosinophils # 0.4 K/mm3 (0.0-0.4); Eosinophils % 3.7 % (0.1-12.0); Hematocrit 46.8 % (42.0-52.0); Lymphocytes # 3.2 K/mm3 (0.7-4.5); Lymphocytes % 30.6 % (10-50); Mean Corpuscular Hemoglobin 34.4 pg (27.0-31.2); Mean Corpuscular Volume 107.5 fl (80-94); Mean Platelet Volume 9.2 fl (7.4-10.4); Monocytes # 0.9 K/mm3 (0.1-1.0); Monocytes % 8.2 % (1.7-9.3); Neutrophils # 5.9 K/mm3 (1.8-7.8); Neutrophils % 56.7 % (37.0-80.0); Platelet Count 360 K/mm3 (142-424); Red Blood Count 4.36 M/mm3 (4.60-6.20); Red Cell Distribution Width 14.2 % (11.5-17.5); White Blood Count 10.4 K/mm3 (4.8-10.8)
[2023-12-04 17:54] LABS: Alanine Aminotransferase 19 U/L (12-78); Albumin Level 3.8 g/dl (3.5-5.0); Albumin/Globulin Ratio 1.1 (1.1-1.8); Alkaline Phosphatase 86 U/L (38-126); Anion Gap 15.4 mEq/L (5-15); Aspartate Amino Transferase 26 U/L (17-59); Bilirubin,Total 0.3 mg/dl (0.2-1.3); Blood Urea Nitrogen 27 mg/dl (9-20); Calcium 9.8 mg/dl (8.4-10.2); Carbon Dioxide 22 mmol/L (22.0-30.0); Chloride 106 mmol/L (98-107); Chol/HDL Ratio 3.7 (1-3.5); Cholesterol 163 mg/dl (140-200); Estimated Glomerular Filt Rate 36 ml/min (>60); GFR (African American) 44 ML/MIN (>60); Globulin 3.4 g/dL (1.3-3.2); Glucose 109 mg/dl (74-100); HDL Cholesterol 44 mg/dl (40-60); Potassium 5.4 mmoL/L (3.5-5.1); Sodium 138 mmol/L (136-145); Total Protein,Serum 7.2 g/dl (6.3-8.2); Triglycerides 169 mg/dl (30-150); Uric Acid 5.8 mg/dl (3.5-8.5); VLDL Cholesterol 34 mg/dL (0-40)
[2023-12-04 18:06] LABS: Direct LDL Cholesterol 80.87 mg/dL (100-129)
[2023-12-04 19:01] LABS: Hemoglobin A1C 7.4 % (4.0-6.0)
== END 2023-12-04 23:59 | disposition home or self-care (01) ==
LOC: LAB.DROPOF 16:32
PROVIDERS: PCP Internal Medicine; Visit Provider Internal Medicine
DX: E78.5 Hyperlipidemia, unspecified (principal); E11.59 Type 2 diabetes mellitus with other circulatory complications; I10 Essential (primary) hypertension; M10.9 Gout, unspecified; Z79.84 Long term (current) use of oral hypoglycemic drugs; Z79.85 Long-term (current) use of injectable non-insulin antidiabetic drugs
CPT/HCPCS: 80053; 80061; 83036; 84550; 85025

== ENCOUNTER 2023-12-30 10:33 | Outpatient (CLI) | payer MEDICARE, BC, SELFPAY ==
--- NOTE | 2023-12-30 10:33 | CT_ITS ---
FINAL REPORT TECHNIQUE: Axial images through the abdomen and pelvis were performed without contrast.This study was performed with techniques to keep radiation doses as low as reasonably achievable, (ALARA). Individualized dose reduction techniques using automated exposure control or adjustment of mA and/or kV according to the patient's size were employed. CLINICAL HISTORY: Right lower quadrant pain COMPARISON: 01/24/2022 FINDINGS: ABDOMEN: Scarring is seen at the lung bases. There is a bulla at the right lung base. The heart size is normal. Limited images of the liver are unremarkable. Patient is status postcholecystectomy. The spleen is normal. No adrenal mass is identified. The aorta is normal in caliber. There is no significant free fluid or adenopathy. There is no nephrolithiasis. There is no hydronephrosis. PELVIS: The appendix is not identified. The urinary bladder is unremarkable. Previously seen debris in the urinary bladder is no longer identified. There are calcified phleboliths in the floor of the pelvis. . There is no significant free fluid or adenopathy. There is a 50% compression deformity of T12 which is chronic. IMPRESSION: No acute process. Reviewed, Interpreted and Dictated by Walter Jarrett MD Transcribed by Karissa Lyman Authenticated and [facility]
== END 2023-12-30 23:59 | disposition home or self-care (01) ==
LOC: RAD 10:33
PROVIDERS: PCP Internal Medicine; Visit Provider Internal Medicine
DX: R10.31 Right lower quadrant pain (principal)
CPT/HCPCS: 74176

== ENCOUNTER 2024-03-18 08:45 | Outpatient (CLI) | payer MEDICARE, BC, SELFPAY ==
[2024-03-18 17:17] LABS: Albumin Level 3.9 g/dl (3.5-5.0); Chloride 107 mmol/L (98-107); Sodium 140 mmol/L (136-145)
[2024-03-18 17:18] LABS: Potassium 5.7 mmoL/L (3.5-5.1)
[2024-03-18 17:26] LABS: Creatinine,Urine Random 40 mg/dL (Not Estab.)
[2024-03-18 17:42] LABS: Microalbumin/Creatinine Ratio 1065.2
[2024-03-18 17:50] LABS: Hemoglobin A1C 7.5 % (4.0-6.0)
[2024-03-18 20:51] LABS: Alanine Aminotransferase 14 U/L (12-78); Albumin/Globulin Ratio 1.3 (1.1-1.8); Alkaline Phosphatase 73 U/L (38-126); Anion Gap 17.7 mEq/L (5-15); Aspartate Amino Transferase 24 U/L (17-59); Bilirubin,Total 0.5 mg/dl (0.2-1.3); Blood Urea Nitrogen 24 mg/dl (9-20); Carbon Dioxide 21 mmol/L (22.0-30.0); Cholesterol 126 mg/dl (140-200); Estimated Glomerular Filt Rate 41 ml/min (>60); GFR (African American) 50 ML/MIN (>60); Total Protein,Serum 6.9 g/dl (6.3-8.2); Triglycerides 102 mg/dl (30-150); VLDL Cholesterol 20 mg/dL (0-40)
[2024-03-18 20:52] LABS: Calcium 9.8 mg/dl (8.4-10.2); Chol/HDL Ratio 2.7 (1-3.5); Glucose 99 mg/dl (74-100); HDL Cholesterol 47 mg/dl (40-60)
[2024-03-18 21:10] LABS: Direct LDL Cholesterol 63.03 mg/dL (100-129)
== END 2024-03-18 23:59 | disposition home or self-care (01) ==
LOC: LAB.DROPOF 03-19 13:06
PROVIDERS: PCP Internal Medicine; Visit Provider Internal Medicine
DX: E11.59 Type 2 diabetes mellitus with other circulatory complications (principal); E78.5 Hyperlipidemia, unspecified; N18.9 Chronic kidney disease, unspecified
CPT/HCPCS: 80053; 80061; 82043; 82570; 83036

== ENCOUNTER 2024-04-07 13:10 | Outpatient (POV) | payer MEDICARE, BC, SELFPAY | END 2024-04-07 23:59 | disposition home or self-care (01) | LOC: SC 04-08 07:04 | PROVIDERS: Visit Provider Dermatology | DX: Z00.00 Encounter for general adult medical examination without abnormal findings (principal) ==

== ENCOUNTER 2024-06-11 10:40 | Day surgery (SDC) | payer MEDICARE, BC, SELFPAY ==
[2024-06-09 14:15] VITALS: BMI 28.7
[2024-06-11 11:11] VITALS: BP 181/97; PULSE 65; RESP 17; TEMP 36.6; O2SAT 95
[2024-06-11] MEDS: LACTATED RINGERS 1000ML 1,000 ML 50 ML IV (11:18)
[2024-06-11 11:20] LABS: POC Glucose,Bedside 96 (70-110)
--- NOTE | 2024-06-11 11:30 | EXP.ANES.CKL ---
[facility] Disclaimer: The information contained in this section may have been updated after the patient was seen, as this information can be updated by other users. Medical History Gout History of left heart catheterization (LHC) Hypertension Diabetes Surgical History Stented coronary artery Family History Other No significant family history Social History Smoking Status: Former smoker alcohol intake: never substance use type: denies use current occupational status: retired Travel in the last 8 weeks: None caffeine: Yes [facility] Anesthesia Checklist Patient Identification Patient Identification: Arm Band Structural Data Admitted From: Home Planned Operative Procedure/s: Colonoscopy Consent for Planned Operative Procedure(s) Verified: Yes Verified Documents: Surgical Consent, History and Physical and Cardiac Clearance NPO Status Verified Time NPO: 00:00 Additional verifications Anesthesia Reactions: No Airway Assessment Mallampati Score:: Class II C-Spine Mobility Assessed: Yes TMJ Mobility Assessed: Yes Dentition: Good Dentition Neurological Assessment Level of Consciousness: Awake, Alert and Appropriate Anesthesia Plan Anesthesia Risk discussed: Yes Anesthesia Plan: Verified ASA Class: III Anesthesia Type: MAC
--- NOTE | 2024-06-11 12:34 | P.HP_ITS ---
History of Present Illness *Admission Date: 06/11/24 *Reason for visit:: Right lower quadrant abdominal pain *History of present illness: Mr. Montoya is an 83-year-old gentleman with chronic constipation and right lower quadrant abdominal pain. His pain was worsened a couple of months ago and he was sent for CT scan of the abdomen and pelvis. This did show some increased fecal burden but was otherwise unremarkable. The patient is postcholecystectomy. He had an unremarkable liver and pancreas. The patient has used Linzess as needed but this does lead to diarrhea. The patient reports moderate gassiness and some bloating. He does report obstipation with incomplete defecation, longer periods of time on the commode and excessive wiping. He reports no significant straining. He reports no rectal bleeding or mucus with his bowel movements. He has had no weight loss. He reports no family history of colon cancer. He does feel that pulling and lifting can make his right lower quadrant pain worse. He has never had a colonoscopy. [facility] Disclaimer: The information contained in this section may have been updated after the patient was seen, as this information can be updated by other users. Medical History Gout History of left heart catheterization (LHC) Hypertension Diabetes Surgical History Stented coronary artery Family History Other No significant family history Social History (Updated 06/11/24 @ 11:31 by Marcus Krueger CRNA) Smoking Status: Former smoker alcohol intake: never substance use type: denies use current occupational status: retired Travel in the last 8 weeks: None caffeine: Yes Other Medical History Have you received the Flu Vaccine for this season: No Have you received the Pneumonia Vaccine: Yes Review of Systems Review of Systems Review of systems (narrative): Negative *Cardiovascular Comments: Negative *Gastrointestinal Comments: Negative *Genitourinary Comments: Negative *Musculoskeletal Comments: Negative *Neurologic Comments: Negative Meds Home Medications and Allergies Home Medications ?Medication ?Instructions ?Recorded ?Confirmed ?Type metformin 1,000 mg tablet 1,000 mg PO BID Diabetes 02/20/22 06/11/24 History triamcinolone acetonide 0.1 % 1 applic topical TID PRN Rash 02/21/22 06/11/24 History topical cream fluticasone 500 mcg-salmeterol 50 1 inh inhalation BID #60 ea 12/25/23 06/11/24 Rx mcg/dose blistr powdr for inhalation evolocumab 140 mg/mL subcutaneous 140 mg SQ .EVERY 2 WEEKS 01/28/24 06/11/24 Rx pen injector (Federico Doyle) hyperlipidemia #2 mL empagliflozin 25 mg tablet See Rx Instructions .Route 03/06/24 06/11/24 Rx (Jardiance) .COMPLEX #90 tabs allopurinol 100 mg tablet See Rx Instructions .Route 03/10/24 06/11/24 Rx .COMPLEX #90 tabs finasteride 5 mg tablet 5 mg PO DAILY #90 tabs 03/10/24 06/11/24 Rx benazepril 40 mg tablet (Lotensin) 40 mg PO DAILY Hypertension #90 03/17/24 06/11/24 Rx tabs pramoxine 1 % lotion (Anti-Itch 1 applic topical TID PRN itching 05/29/24 06/11/24 Rx (pramoxine)) #237 mL clopidogrel 75 mg tablet (Plavix) 75 mg PO DAILY coronary artery 06/09/24 06/11/24 History disease oxazepam 10 mg capsule 10 mg PO TID PRN Anxiety #90 caps 06/09/24 06/11/24 Rx tamsulosin 0.4 mg capsule 0.4 mg PO DAILY 06/11/24 06/11/24 History New Prescriptions to Start Prescriptions: Allergies Allergy/AdvReac Type Severity Reaction Status Date / Time ceftriaxone (From Rocephin) Allergy Swelling Verified 06/11/24 11:06 of the Eye sulfamethoxazole (From Allergy Unknown Verified 06/11/24 11:06 Bactrim) allergy reaction trimethoprim (From Bactrim) Allergy Unknown Verified 06/11/24 11:06 allergy reaction Exam Data for Last 24 hours Vital signs and Labs for Last 24 Hours: Temp Pulse Resp BP Pulse Ox O2 Del Method 97.8 F 65 17 181/97 H 95 Room Air 06/11/24 11:11 06/11/24 11:11 06/11/24 11:11 06/11/24 11:11 06/11/24 11:11 06/11/24 11:11 Laboratory Results - last 24 hr 06/11/24 11:09: POC Glucose 96 I & O for Last 24 hours: Intake & Output 06/08/24 06/09/24 06/10/24 06/11/24 23:59 23:59 23:59 23:59 Weight 189 lb *Routine HEENT Exam Head: Present normocephalic Eye: Present EOMI and PERRL ENT: Present mucous membranes moist *Routine Neck Exam Neck: Present supple *Routine Respiratory Exam Respiratory: Present CTA bilaterally *Routine Cardiovascular Exam Cardiovascular: Present RRR *Routine Abdominal Exam Abdominal: Present soft and normoactive bowel sounds; Absent tenderness *Routine Rectal Exam Rectal:: deferred *Routine Genitalia Exam Genitalia:: deferred *Routine Extremities Exam Extremities: Absent cyanosis, clubbing or edema *Routine Skin Exam Skin: Present warm; Absent rash *Routine Neurological Exam Neurological: Present alert and oriented X3 Assessment and Plan *Assessment and plan (1) Right lower quadrant abdominal pain: Status: Acute Category: Medical Code(s): R10.31 - Right lower quadrant pain (2) Obstipation: Status: Acute Category: Medical Code(s): K59.00 - Constipation, unspecified (3) Incomplete defecation: Status: Acute Category: Medical Code(s): R15.0 - Incomplete defecation (4) Bloating: Status: Acute Category: Medical Code(s): R14.0 - Abdominal distension (gaseous) (5) Right upper quadrant pain: Status: Acute Category: Medical Code(s): R10.11 - Right upper quadrant pain Plan A/P: 1. Right sided abdominal pain primarily right lower quadrant pain with obstipation and no prior colonoscopy is the preprocedural diagnosis. The patient will be anesthetized/sedated using MAC sedation. The patient has been seen and examined. Cardiac and lung assessment prior to the examination is stable. Proceed with planned diagnostic colonoscopy
--- NOTE | 2024-06-11 12:36 | HMH.PROCNOTE ---
[facility] Procedure Note Date: 06/11/24 Time: 13:13 Procedure Note:: Colonoscopy Procedure Report: Colonoscopy with cold snare polypectomy Endoscopist: Dwaine Rowan II, MD Referring physician: Clark Santillan MD Date of Procedure: June 11, 2024 Equipment: Olympus 190 variable stiffness pediatric colonoscope Sedation: MAC sedation Indication: Mr. Montoya is an 83-year-old gentleman who is here for diagnostic colonoscopy. He has had chronic constipation and right lower quadrant abdominal pain. His pain was worsened a couple of months ago and he was sent for CT scan of the abdomen and pelvis. This did show some increased fecal burden but was otherwise unremarkable. The patient is postcholecystectomy. He had an unremarkable liver and pancreas. The patient has used Linzess as needed but this does lead to diarrhea. The patient reports moderate gassiness and some bloating. He does report obstipation with incomplete defecation, longer periods of time on the commode and excessive wiping. He reports no significant straining. He reports no rectal bleeding or mucus with his bowel movements. He has had no weight loss. He reports no family history of colon cancer. He does feel that pulling and lifting can make his right lower quadrant pain worse. He has never had a colonoscopy. Procedure: Prior to the procedure, a history and physical exam was performed, and patient's medications and allergies were reviewed. The risks, benefits and alternatives of the sedation and procedure were discussed with the patient. All questions were answered and informed consent was obtained. The patient was brought to the procedure room. Patient identification and proposed procedure were verified by the physician and the nurse. The patient was placed in a left lateral decubitus position and the scope was passed under direct vision. Throughout the procedure, the patient's blood pressure, pulse, and oxygen saturations were monitored continuously. The colonoscopy was accomplished without difficulty. The patient tolerated the procedure well. Findings: On digital rectal examination there was normal rectal tone. There were no external hemorrhoids. The prostate was 2+, smooth, soft, symmetric without nodules. The colonoscope was introduced through the anal canal to the rectum and advanced to the cecum. The ileocecal valve and appendiceal orifice were identified. The scope was advanced a short distance into the ileum which appeared grossly normal. The scope was then withdrawn into the colon. There were 3 polyps (ascending x 1 (9 to 10 mm), transverse x 1 (4 mm) and sigmoid x 1 (4 mm)). These were all removed via cold snare polypectomy. The remaining cecum, ascending and transverse colon and mucosa were grossly normal. There was some angulation at the hepatic flexure suggestive of hepatic flexure syndrome. There were scattered diverticuli throughout the descending and sigmoid colon (LEFT colon). The rectum itself was normal. Upon retroflexion within the rectum there were grade 2 internal hemorrhoids. The preparation was excellent throughout with [place] Preparation Score of 9. The cecal time was 14 minutes. Impression: 1. Colonic polyps x 3 2. Left-sided diverticulosis 3. 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 Based upon the patient's age, I am not convinced that he will need any further preventive colonoscopy. I do feel that he has right lower quadrant abdominal pain secondary to obstipation and hepatic flexure syndrome. Hepatic flexure syndrome is a term used to describe bloating, muscle spasms of the colon and abdominal pain on the right side and is thought to be caused by trapped gas and stool at the hepatic flexure/curvature of the colon which is in the right upper colon. The pain can be excruciating and debilitating.
[2024-06-11 12:40] VITALS: O2SAT 100
[2024-06-11 13:16] VITALS: BP 127/71; PULSE 69; RESP 16; TEMP 37; O2SAT 95
[2024-06-11 13:26] VITALS: BP 135/71; PULSE 64; RESP 16; O2SAT 95
[2024-06-11 13:36] VITALS: BP 140/78; PULSE 64; RESP 18; O2SAT 96
[2024-06-11 13:46] VITALS: BP 138/73; PULSE 67; RESP 18; O2SAT 98
== END 2024-06-11 14:05 | disposition home or self-care (01) ==
PROVIDERS: PCP Internal Medicine; Visit Provider Internal Medicine Gastroenterology
PROC: 0DJD8ZZ Inspection of Lower Intestinal Tract, Via Natural or Artificial Opening Endoscopic (ICD-10-PCS; CPT 45378; principal; 2024-06-11 12:30)
DX: R10.31 Right lower quadrant pain (principal); R15.0 Incomplete defecation; R14.0 Abdominal distension (gaseous); R10.11 Right upper quadrant pain; K63.5 Polyp of colon; K57.30 Diverticulosis of large intestine without perforation or abscess without bleeding; K64.1 Second degree hemorrhoids; E11.9 Type 2 diabetes mellitus without complications; Z79.84 Long term (current) use of oral hypoglycemic drugs
CPT/HCPCS: 45385; 82962; J7120

== ENCOUNTER 2024-07-14 16:50 | Outpatient (CLI) | payer MEDICARE, BC, SELFPAY ==
[2024-07-14 18:08] LABS: Basophils % 0.3 % (0.1-2.0); Eosinophils # 0.1 K/mm3 (0.0-0.4); Eosinophils % 0.5 % (0.1-12.0); Hematocrit 40.2 % (42.0-52.0); Hemoglobin 13.7 g/dL (14.1-18.0); Lymphocytes % 29.9 % (10-50); Mean Corpuscular HGB Conc 34.1 g/dL (31.8-35.4); Mean Corpuscular Hemoglobin 32.3 pg (27.0-31.2); Mean Corpuscular Volume 94.8 fl (80-94); Monocytes # 1.2 K/mm3 (0.1-1.0); Monocytes % 8.7 % (1.7-9.3); Neutrophils % 60.1 % (37.0-80.0); Platelet Count 218 K/mm3 (142-424); Red Blood Count 4.24 M/mm3 (4.60-6.20); Red Cell Distribution Width 13.2 % (11.5-17.5); White Blood Count 13.2 K/mm3 (4.8-10.8)
[2024-07-14 21:19] LABS: Albumin Level 4.4 g/dl (3.5-5.0); Chloride 99 mmol/L (98-107); Potassium 5.8 mmoL/L (3.5-5.1); Sodium 129 mmol/L (136-145)
[2024-07-14 21:22] LABS: Alanine Aminotransferase 21 U/L (12-78); Albumin/Globulin Ratio 1.7 (1.1-1.8); Alkaline Phosphatase 76 U/L (38-126); Anion Gap 12.8 mEq/L (5-15); Aspartate Amino Transferase 25 U/L (17-59); Bilirubin,Total 0.4 mg/dl (0.2-1.3); Blood Urea Nitrogen 33 mg/dl (9-20); Calcium 9.7 mg/dl (8.4-10.2); Carbon Dioxide 23 mmol/L (22.0-30.0); Chol/HDL Ratio 2.5 (1-3.5); Cholesterol 131 mg/dl (140-200); Estimated Glomerular Filt Rate 36 ml/min (>60); GFR (African American) 44 ML/MIN (>60); Globulin 2.6 g/dL (1.3-3.2); Glucose 102 mg/dl (74-100); HDL Cholesterol 53 mg/dl (40-60); Triglycerides 162 mg/dl (30-150); VLDL Cholesterol 32 mg/dL (0-40)
[2024-07-14 21:33] LABS: Direct LDL Cholesterol 44.58 mg/dL (100-129)
[2024-07-15 00:09] LABS: Hemoglobin A1C 7.2 % (4.0-6.0)
== END 2024-07-14 23:59 | disposition home or self-care (01) ==
LOC: LAB.DROPOF 07-15 14:55
PROVIDERS: PCP Internal Medicine; Visit Provider Internal Medicine
DX: E78.5 Hyperlipidemia, unspecified (principal); E11.59 Type 2 diabetes mellitus with other circulatory complications; Z79.84 Long term (current) use of oral hypoglycemic drugs; I11.9 Hypertensive heart disease without heart failure; I25.10 Atherosclerotic heart disease of native coronary artery without angina pectoris; Z87.891 Personal history of nicotine dependence
CPT/HCPCS: 80053; 80061; 83036; 85025

== ENCOUNTER 2024-07-21 07:58 | Outpatient (CLI) | payer MEDICARE, BC, SELFPAY ==
--- NOTE | 2024-07-21 08:01 | CA_ITS ---
FINAL REPORT CLINICAL HISTORY: dizziness, AUGUSTINE, previous study done at outside hospital done several years ago per patient. DM, CAD, HLD, HTN, hx TIA. COMPARISON: None FINDINGS: RIGHT CAROTID: CCA PSV -121 cm/sec ICA PSV -102 cm/sec ICA/CCA PSV ratio -1.2. Comments: Mild plaque disease is noted. LEFTCAROTID: CCA PSV -80. cm/sec ICA PSV -126. cm/sec ICA/CCA PSV ratio -2.0. Comments: Mild plaque disease is noted. Antegrade flow is seen within the vertebral arteries. IMPRESSION: Carotid stenosis classified less than 50% Reviewed, Interpreted and Dictated by Houston Streeter MD Transcribed by Adelita Tapia Authenticated and [facility][1]
== END 2024-07-21 23:59 | disposition home or self-care (01) ==
LOC: RT 07:59
PROVIDERS: PCP Internal Medicine; Visit Provider Internal Medicine
DX: R42 Dizziness and giddiness (principal)
CPT/HCPCS: 93880

== ENCOUNTER 2025-01-25 10:01 | Outpatient (CLI) | payer MEDICARE, BC, SELFPAY ==
[2025-01-25 10:11] LABS: Microscopic, Urine URINE MICROSCOPIC (MICROSCOPIC)
--- OUTSIDE RECORDS SUMMARY | 2025-01-25 10:22 | XMS_ITS | Clinical Summary ---
Author Organization Healthcare Address [address] 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 Active benazepril (Lotensin) 40 MG tablet 01/01/2022 Active Jardiance 25 MG 01/09/2022 Act chao Repatha SureClick 140 MG/ML solution auto-injector 01/22/2022 Activ e Linzess 72 MCG capsule capsule 12/25/2021 Act chao metFORMIN (Glucophage) 1000 MG tablet 11/27/2021 Acti ve oxazepam (Serax) 10 MG capsule 01/02/2022 Activ e clopidogrel (Plavix) 75 MG tablet 05/26/2022 Active amoxicillin-clav ulanate (Augmentin) 875-125 MG tablet 08/15/2022 Active predniSONE (Deltasone) 10 MG tablet 08/15/2022 Active Active Problems No known active problems Encounters Date Type Department Care Team Description 11/04/2024 Orders Only [facility] [address] [place] [phone] Angela Arroyo Stage 3 chronic kidney disease, unspecified whether stage 3a or 3b CKD (CMS/HCC) (Primary Dx); Vitamin D insufficiency from Last 3 Months Social History Tobacco Use Types Packs/Day Years Used Date Smoking Tobacco: Former Cigarettes 0.5 10 0 12/31/1961 - 01/01/1972 Smokeless Tobacco: Never Tobacco Cessation:Counseling Given: Not Answered Alcohol Use Standard Drinks/Week Comments Never 0 (1 standard drink = 0.6 oz pur e alcohol) PHQ-2 Answer Date Recorded Patient Health Questionnaire-2 Score 0 06/21/2022 PHQ-2A Answer Date Recorded Patient Health Questionnaire-2 Score 0 06/21/2022 Sex and Gender Information Value Date Recorded Sex Assigned at Not on file Legal Sex Male 8:22 PM EDT Gender Identity Not on file Sexual Orientation Not on file Last Filed Vital Signs Vital Sign Reading Time Taken Comments Blood Pressure 152/79 12/19/2022 9:46 AM EDT Pulse 79 12/19/2022 9:46 AM EDT Temperature 36.5 C (97.7 F) 01/25/2022 11:37 AM EDT Respiratory Rate 17 01/25/2022 1:08 PM EDT Oxygen Saturation 96% 01/29/2022 9:26 AM EDT Inhaled Oxygen Concentration - - Weight 84 kg (185 lb 3 oz) 12/19/2022 9:46 AM ED T Height 172.7 cm (5' 8 ) 12/19/2022 9:46 AM EDT Body Mass Index 28.16 12/19/2022 9:46 AM EDT Plan of Treatment Upcoming Encounters Date Type Department Care Team (Late st Contact Info) Description 01/29/2025 11:20 AM EDT Office Visit [facility] [address] [place] [phone] Niesha Rose, COUNSELING AIDE [address] [phone] Health Maintenance Due Date Last Done Comments [facility]-Medicare Annual Wellness (AWV) 1940 [facility]-Infant/Child/Adol SDOH Screenings 1940 [facility]- SDOH Screenings 1958 [facility]-Adult SDOH Screenings 1958 [facility]-Pneumococcal Vaccine: 50+ Years (2 of 2 - PCV) 03/30/2014 03/30/2013 [facility]-RSV Vaccine: 60+ Years or (1 - 1-dose 75+ series) 09/19/2015 [id number] Vaccine (2 - Moderna risk series) 01/10/2022 12/13/2021 [facility]-Depression Screening 06/21/2023 06/21/2022 [facility]-Influenza Vaccine (#1) 2025 03/09/2024 [facility]-DTaP,Tdap,and Td Vaccines (3 - Td or Tdap) 05/08/2031 05/08/2021, 06/03/2015, 10/27/1996 [facility]-Obesity Intervention Completed 023, 06/21/2022, 02/28/2022, Additional history exists [facility]-Zoster Vaccines Completed 08/21/2023, HPV Vaccines Aged Out No longer eligi ble based on patient's age to complete this topic [facility]-HIB Vaccines Aged Out No longer e ligible based on patient's age to complete this topic [facility]-Hepatitis A Vaccines Aged Out No longer eligible based on patient's age to complete this topic [facility]-IPV Vaccines Aged Out No longer e ligible based on patient's age to complete this topic [facility]-Rotavirus Vaccines Aged Out No lo nger eligible based on patient's age to complete this topic Insurance MEDICARE [facility] Care Teams Asphalt Heater Tender Relationship Specialty Start Date End Date Clark Santillan MD [address] [place] [address] [address] [place] [address] PCP - General 01/24/22
--- OUTSIDE RECORDS SUMMARY | 2025-01-25 10:22 | XMS_ITS | Clinical Summary ---
Author Organization [facility] Address [address] [place] [address] Care Team Providers Care Barrel Brander Name Role Phone Clark Santillan MD Primary Care Provider Allergies No known active allergies Medications aspirin 81 MG EC tablet Take 81 mg by mouth Daily. Active allopurinol (ZYLOPRIM) 100 MG tablet Take 100 mg by mouth Daily. Active benazepril (LOTENSIN) 40 MG tablet Take 40 mg by mouth Daily. Active metFORMIN (GLUCOPHAGE) 1000 MG tablet Take 1,000 mg by mouth Daily With Breakfast. Active Evolocumab (Repatha) 140 MG/ML solution prefilled syringe Inject 1 each under the skin into the appropriate area as directed Every 14 (Fourteen) Days. Active clopidogrel (PLAVIX) 75 MG tablet Take 1 tablet by mouth Daily. 30 tablet 11 0 Active Empagliflozin (Jardiance) 25 MG tablet Take by mouth. 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 08/10/2019 Essential hypertension 08/10/2019 CKD (chronic kidney disease) stage 3, GFR 30-59 ml/min 08/10/2019 Chronic diastolic congestive heart failure 08/09 Overview (08/10/2019): Due to valvular disease Severe aortic stenosis 08/10/2019 Family History Medical History Relation Name Comments Stroke Father Coronary artery disease Mother Diabetes Mother Hypertension Mother Relation Name Status Comments Father Mother Social History Tobacco Use Types Packs/Day Years Used Date Smoking Tobacco: Former Cigarettes 0.5 19 1 1976 Smokeless Tobacco: Never Comments:quit at age 35 Alcohol Use Standard Drinks/Week Comments Never 0 (1 standard drink = 0.6 oz pur e alcohol) occasional AUDIT-C Answer Date Recorded Q1: How often do you have a drink containing alc ohol? Never 09/07/2019 Average Number of Drinks Not on file 020 Frequency of Binge Drinking Not on file 08/2019 Abuse Screen Answer Date Recorded Unsafe at Home or Work/School Not on file Feels Threatened by Someone? Not on file 01/2023 Does Anyone Keep You from Co ntacting Others or Doint Things Outside the Home? Not on file 02/11/2023 Physical Sign of Abuse Present Not on file 1 Housing Stability Answer Date Recorded Current Living Arrangements Not on file 01/2023 Potentially Unsafe Housing Conditions Not on markos e 02/11/2023 Family and Community Support Answer Arun e Recorded Help with Day-to-Day Activities Not on file 02/11/2023 Lonely or Isolated Not on file 02/11/2023 Employment Answer Date Recorded Do you want help finding or keeping work or a lizy b? Not on file 02/11/2023 Disabilities Answer Date Recorded Concentrating, Remembering, or Making Decisions Difficulty Not on file 02/11/2023 Doing Errands Independently Difficulty Not on fi le 02/11/2023 Education Answer Date Recorded Help with school or training? 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 Not on file Not on file Last Filed Vital Signs Vital Sign Reading Time Taken Comments Blood Pressure 120/70 09/21/2019 2:47 PM EDT Pulse 62 09/21/2019 2:47 PM EDT Temperature 36.6 C (97.8 F) 09/21/2019 2:47 PM EDT Respiratory Rate 18 09/07/2019 2:03 PM EDT Oxygen Saturation 97% 09/21/2019 2:47 PM EDT Inhaled Oxygen Concentration - - Weight 86.6 kg (191 lb) 09/21/2019 2:47 PM EDT Height 172.7 cm (5' 8 ) 09/21/2019 2:47 PM EDT Body Mass Index 29.04 09/21/2019 2:47 PM EDT Plan of Treatment Health Maintenance Due Date Last Done Comments ZOSTER VACCINE (1 of 2) 1990 Pneumococcal Vaccine 50+ (2 of 2 - PCV) 03/30/2014 03/30/2013 RSV Vaccine - Adults (1 - 1- dose 75+ series) 09/19/2015 ANNUAL PHYSICAL 07/27/2019 LIPID PANEL 04/18/2021 04/18/2020, 01/05, 07/07/2019, Additional history exists INFLUENZA VACCINE 12/04/2024 02/01/2020, , 01/13/2019, Additional history exists COVID-19 Vaccine (1 - 2023-2 5 season) 2025 TDAP/TD VACCINES (3 - Td or Tdap) 06/03/2025 016, 10/27/1996 HEMOGLOBIN A1C Discontinued 05/11/2020, 01/05, 10/02/2019, Additional history exists Medical Devices Implanted Type Area Weighter Device Identifier Shelf Expiration Date Model / Serial / Lot Vlv Heart Trnscath [id number] 26mm - [id number] - [id number] Implanted:Qty: 1 on 08/27/2019 by Mustapha Villela MD at [facility] Implant N/A: Aorta [employer] T[employer]HA 02/03/2021 [id number] / [id number] / Stnt Xience Fatemeh Everolimus Josemanuel 3x23mm - [id number] Implanted:Qty: 1 on 08/18/2019 by Pablo Stevens MD at [facility] [employer] [id number] / / [id number] Procedures Procedure Name Priority Date/Time Associated Diagnosis Comments HEMOGLOBIN A1C Routine 08/26/2019 11:42 AM EDT Aortic valve disorder from Last 3 Months or Most Recently Relevant to Health Maintenance Results * (ABNORMAL) Hemoglobin A1c (08/26/2019 11:42 AM EDT) Hemoglobin A1C 8.60(H) 4.80 - 5.60 % 08/26/2019 12:24 PM EDT [facility] Blood Venipuncture / Unknown 08/26/2019 11:42 AM EDT 08/26/2019 12:04 PM EDT Narrative [facility] - 08/26/2019 12:24 PM EDT Hemoglobin A1C Ranges: Increased Risk for Diabetes 5.7% to 6.4% Diabetes >= 6.5% Diabetic Goal < 7.0% us Dede Montoya ACCOUNT CONTACT ASSOCIATE LAB BLOOD ORDERABLES Final R esult [facility]
[address] [place] [address], from Last 3 Months or Most Recently Relevant to Health Maintenance Insurance MEDICARE A & B [facility] [place] Advance Directives * CPR (Attempt to Resuscitate) (Latest Code Status on File) Date Activated Date Inactivated Comments 08/27/2019 8:41 AM 08/28/2019 1:38 PM Question Answer Comments Code Status (Patient has no pulse and is not breathing): CPR (Attempt to Resuscitate) Medical Interventions (Patie nt has pulse or is breathing): Full Care Teams Barrel Brander Relationship Specialty Start Date End Date Clark Santillan MD [address] [place] [address] [facility] [address] PCP - General Internal Medicine 08/26/19
--- OUTSIDE RECORDS SUMMARY | 2025-01-25 10:22 | XMS_ITS | Encounter Summary ---
Author Organization Healthcare Address [address] [place] [address] Care Team Providers Care Decision Science Analyst Name Role Phone lCark Santillan MD Primary Care Provider [phone] Encounter Details Date Type Department Care Team (Late Contact Info) Description 06/06/2022 Orders Only External Location [address] [place] [phone] Provider, External Social History Tobacco Use Types Packs/Day Years Used Date Smoking Tobacco: Former Cigarettes 0 12/31/1961 - 01/01/1972 Smokeless Tobacco: Never Alcohol Use Standard Drinks/Week Comments Never 0 (1 standard drink = 0.6 oz pur e alcohol) Sex and Gender Information Value Date Recorded Sex Assigned at Not on file Legal Sex Male 8:22 PM EDT Gender Identity Not on file Sexual Orientation Not on file documented as of this encounter Plan of Treatment Upcoming Encounters Date Type Department Care Team (Late Contact Info) Description 01/29/2025 11:20 AM EDT Office Visit [facility] [address] [place] [id number] Niesha Rose, ORACIO [address] [address] documented as of this encounter Procedures Procedure Name Priority Date/Time Associated Diagnosis Comments MR ABDOMEN OUTSIDE IMAGES 06/06/2022 6:24 PM EST documented in this encounter Results * MR ABDOMEN OUTSIDE IMAGES (06/06/2022 6:24 PM EST) Anatomical Region Laterality Modality Magnetic Resonan ce 06/06/2022 6:24 PM EST us External Provider IMG MRI PROCEDURES Final Resul t documented in this encounter Visit Diagnoses Not on filedocumented in this encounter Additional Health Concerns Assessment Noted Time A fall risk assessment has been complete d for the patient 02/28/2022 11:21 AM EDT documented as of this encounter Care Teams Decision Science Analyst Relationship Specialty Start Date End Date Clark Santillan MD [address] [place] [address] [address] [place] [address] PCP - General 01/24/22 documented as of this encounter
[2025-01-25 10:57] LABS: Hematocrit 40.6 % (42.0-52.0); Hemoglobin 13.2 g/dL (14.1-18.0); Immature Granulocytes % 0.3 %; Mean Corpuscular HGB Conc 32.5 g/dL (31.8-35.4); Mean Corpuscular Hemoglobin 32.6 pg (27.0-31.2); Mean Corpuscular Volume 100.2 fl (80-94); Nucleated Red Blood Cells % 0 %; Platelet Count 324 K/mm3 (142-424); Red Blood Count 4.05 M/mm3 (4.60-6.20); Red Cell Distribution Width-SD 50.6 fL; White Blood Count 11.8 K/mm3 (4.8-10.8)
[2025-01-25 11:05] LABS: Bilirubin,Urine Negative (Negative); Color,Urine YELLOW (Yellow); Glucose,Urine (UA) 3+ (Negative); Ketones,Urine Negative (Negative); Leukocyte Esterase,Urine Negative (Negative); PH,Urine 6.0 (5.0-8.5); Protein,Urine 1+ (Negative); Urobilinogen,Urine 0.2 EU/dl (0.2)
[2025-01-25 11:11] LABS: Specific Gravity, Urine 1.012 (1.005-1.030)
[2025-01-25 11:17] LABS: Squamous Epithelial Cell,Urine Occasional #/hpf (0-5)
[2025-01-25 11:22] LABS: Albumin Level 4.0 g/dl (3.5-5.0); Chloride 102 mmol/L (98-107); Potassium 5.5 mmoL/L (3.5-5.1); Sodium 137 mmol/L (136-145)
[2025-01-25 11:25] LABS: Anion Gap 14.5 mEq/L (5-15); Blood Urea Nitrogen 27 mg/dl (9-20); Calcium 9.9 mg/dl (8.4-10.2); Carbon Dioxide 26 mmol/L (22.0-30.0); Creatinine,Serum 1.70 mg/dl (0.66-1.25); Estimated Glomerular Filt Rate 39 ml/min (>60); GFR (African American) 47 ML/MIN (>60); Glucose 137 mg/dl (74-100); Phosphorous 3.4 mg/dl (2.5-4.5)
[2025-01-25 11:39] LABS: 25-OH Vitamin D, Total 49.4 ng/mL (30-100)
== END 2025-01-25 23:59 | disposition home or self-care (01) ==
LOC: LAB 10:03
PROVIDERS: PCP Internal Medicine; Visit Provider Nurse Practitioner
DX: N18.30 Chronic kidney disease, stage 3 unspecified (principal); E55.9 Vitamin D deficiency, unspecified
CPT/HCPCS: 36415; 80069; 81001; 82306; 82570; 83970; 84156; 85025

== ENCOUNTER 2025-02-08 10:35 | Outpatient (CLI) | payer MEDICARE, BC, SELFPAY ==
--- OUTSIDE RECORDS SUMMARY | 2025-01-29 11:20 | XMS_ITS | Encounter Summary ---
Author Organization [facility] Address [address] [place] [address] Care Team Providers Care Paint Line Operator Name Role Phone Clark Santillan MD Primary Care Provider [phone] Reason for Referral * Consultation (Routine) - Authorized Specialty Diagnoses / Procedures Referred By Contac t Referred To Contact Diagnoses Stage 3b chronic kidney disease (CMS/HCC) Essential hypertension Hyperkalemia Niesha Rose APRN [address] [address] Phone: tel: fax: Referral ID Status Reason Start Date Expiration Date V isits Requested Visits Authorized [id number] Authorized 01/29/2025 07/31/2026 1 1 Reason for [...] chronic kidney disease (CMS/HCC) Reese Valdez MD [address] [place] [phone] Phone: tel: fax: Referral ID Status Reason Start Date Expiration Date V isits Requested Visits Authorized [id number] Closed Specialty Services Required 07/31/2024 01/30/2026 1 1 Encounter Details Date Type Department Care Team (Late st Contact Info) Description 01/29/2025 11:20 AM EDT Office Visit [facility] [address] [place] [address] Niesha Rose, ROUGH RIB GRADER [address] [address] Stage 3b chronic kidney disease (CMS/HCC) (Primary Dx); Anemia, unspecified type; Essential hypertension; Diabetes mellitus due to underlying condition with diabetic chronic kidney disease, unspecified CKD stage, unspecified whether termite helper insulin use (CMS/HCC); Chronic kidney disease-mineral and [...] Labs scanned in to media tab of [employer] from an outside facility. Labs completed on [...] Description 03/19/2025 10:20 AM EST Office Visit [place] [address] [facility] [address] [place] [address] Niesha Rose APRN [address] [address] Scheduled Orders Name Type Priority [...] Lab Routine Stage 3b chronic kidney disease ([facility]/HCC) Expected: 01/29/2025 (Approximate), Expires: 07/29/2026 Albumin-creatinine ratio, urine, random Lab Routine Stage 3b chronic kidney disease ([facility]/HCC) Expected: 01/29/2025 (Approximate), Expires: 07/29/2026 Protein, Random, Urine with Creatinine Lab Routine Stage 3b chronic kidney disease ([facility]/HCC) Expected: 01/29/2025 (Approximate), Expires: 07/29/2026 Renal function panel Lab Routine Hyperkalemia Expected: 02/12/2025 (Approximate), Expires: 08/02/2026 Scheduled Referrals Name Type Priority Associated Diagnoses Order Schedule Follow Up Nephrology Outpatient Referral Routine Stage 3b chronic kidney disease ([facility]) Essential hypertension Hyperkalemia Expected: 03/31/2025 (Approximate), Expires: 02/28/2026 documented as of this encounter Visit Diagnoses Diagnosis Stage 3b chronic kidney disease ([facility])- Primary Anemia, unspecified type Essential hypertension Unspecified essential hypertension Diabetes mellitus due to underlying condition with diabetic chronic kidney disease, unspecified CKD stage, unspecified whether assisted insulin use Chronic kidney disease-mineral and bone disorder Proteinuria, unspecified type Hyperkalemia Hyperpotassemia documented in this encounter Additional Health Concerns Assessment Noted Time A fall risk assessment has been complete d for the patient 06/21/2022 2:34 PM EST A Body Mass Index follow-up plan has been documented for the patient 01/29/2025 1:29 PM EDT documented as of this encounter Care Teams Paint Line Operator Relationship Specialty Start Date End Date Clark Santillan MD [address] [place] [address] [address] [place] [address] PCP - General 01/24/22 documented as of this encounter
[2025-02-08 19:01] LABS: Chloride 97 mmol/L (98-107); Potassium 5.7 mmoL/L (3.5-5.1); Sodium 133 mmol/L (136-145)
[2025-02-08 19:04] LABS: Anion Gap 18.7 mEq/L (5-15); Carbon Dioxide 23 mmol/L (22.0-30.0)
[2025-02-08 19:05] LABS: Calcium 10.1 mg/dl (8.4-10.2); Cholesterol 136 mg/dl (140-200); Glucose 85 mg/dl (74-100); HDL Cholesterol 43 mg/dl (40-60); Triglycerides 126 mg/dl (30-150)
[2025-02-08 19:39] LABS: Blood Urea Nitrogen 24 mg/dl (9-20); Creatinine,Serum 1.70 mg/dl (0.66-1.25); Estimated Glomerular Filt Rate 39 ml/min (>60); GFR (African American) 47 ML/MIN (>60)
[2025-02-08 20:07] LABS: Hemoglobin A1C 7.3 % (4.0-6.0)
--- OUTSIDE RECORDS SUMMARY | 2025-02-09 01:59 | XMS_ITS | Data Portability ---
Author Organization [facility] Address [address] [place] [address] Assessment No assessment recorded. Plan of Treatment Reminders Order Date Submit Date Provider Last Modified By Organization Details Last Modified Time Details Appointments None recorded. Lab rapid flu (A+B) 2023 024 [facility], [address] [place] [address], [id number], 4 14:15:38 rapid SARS CoV + SARS CoV 2 Ag, QL IA, respiratory specimen 2023 024 [facility], [address] [place] [address], [id number], 4 14:15:38 Referral None recorded. Procedures None recorded. Surgeries None recorded. Imaging None recorded. Medication Orders Flonase Allergy Relief 50 mcg/actuati on nasal spray,suspe nsion [address] [facility] [id number], [address] [facility] , [place], [address], 5 09:55:11 dexamethaso ne sodium phosphate 4 mg/mL injection solution 2024 025 [email or web address] Not available 5 10:01:07 prednisone 10 mg tablet [address] [facility] [id number], [address] [facility] , [place], [address], 5 05:01:19 dexamethaso ne sodium phosphate 4 mg/mL injection solution 2024 025 bstears Not available 5 09:16:03 Voltaren Arthritis Pain 1 % topical gel [address] [facility] [id number], [address] [facility] , [place], [address], 5 10:23:04 prednisone 10 mg tablet [address] [facility] [id number], [address] [facility] , [place], [address], 5 05:01:19 neomycin-po lymyxin-hyd rocort 3.5 mg-10,000 unit/mL-1 % ear drops,susp [address] [facility] [id number], [address] [facility] , [place], [address], 4 15:40:09 doxycycline hyclate 100 mg capsule [address] [facility] [id number], [address] [facility] , [place], [address], 5 09:55:33 dexamethaso ne sodium phosphate 4 mg/mL injection solution 2023 024 bstears Not available 5 09:16:03 cefdinir 300 mg capsule [address] [facility] [id number], [address] [facility] , [place], [address], 4 13:25:12 prednisone 10 mg tablet [address] [facility] [id number], [address] [facility] , [place], [address], 5 05:01:19 Patient TargetsNo targets recorded. Patient InstructionsNo instructions recorded. Reason for Referral None Reported. Results Created Date Observation Date Name Description Value Unit Range Abnormal Flag Note LastModifiedBy Organization Detail LastModifiedTime 03/24/20 24 03/24/2024 rapid SARS CoV + SARS CoV 2 Ag, QL IA, respi rator y speci men SARS CoV antigen Negati ve Not Available [address], [address], 03/24/2024 13:35:37 03/24/2003/24/2024 rapid flu (A+B) Flu negati ve Not Available [address], [address], 03/24/2024 13:35:31 03/24/2003/24/2024 rapid flu (A+B) Type Both A & B Not Available [address], [address], 03/24/2024 13:35:31 Result Notes None recorded. Problems Name Problem SNOMED Code Status Onset Date Resolution Date Notes Provider Name and Address Organization Details Recorded Time Hypertensive disorder 93715716 Active Blanca [place] - [facility] 4 11:15:05 Benign prostatic hyperplasia 472670331 Active Bl[place] [facility] 11:15:14 Gout 23695817 Active Bl[place] [facility] 11:15:37 Irritable bowel syndrome 15772360 Active Blanca Null null, [place] - [facility] 11:15:46 Anxiety 53537787 Active 2023 Bl[place] [facility] 11:15:23 Problem Notes None recorded. Procedures Surgical History Date Name Laterality Status Provider Name and Address Organization Details Recorded Time procedure on heart valve completed Blanca Null [place] - [facility] 05/09/2023 11:16:20 placement of stent in cardiac conduit completed Blanca Null [place] - [facility] 05/09/2023 11:16:40 cholecystectomy completed Alecia LOREDO - [facility] 09/22/2024 09:31:17 cardiac catheterization completed Alecia LOREDO - [facility] 025 09:31:31 Imaging Results None recorded. Procedure Notes None recorded. Medical Equipment None Reported. Allergies No known drug allergies Medications Name Sig Start Date Stop Date Status Note LastModified by Organization Details LastModified Time penicillin V potassium 250 mg tablet 03/24 completed Not Available Not Available Not Available amoxicillin 500 mg capsule Take 1 capsule twice a day by oral route for 10 days. 03/24 completed Not Available Not Available Not Available nystatin 100,000 unit/mL oral suspension 05/09 completed Not Available Not Available Not Available prednisone 10 mg tablet Take 1 tablet twice a day by oral route for 5 days. 10/04 completed Not Available Not Available Not Available oxazepam 10 mg capsule Take 1 capsule every day by oral route for 30 days. active Not Available Not Available No t Available doxycycline hyclate 100 mg capsule Take 1 capsule twice a day by oral route for 10 days. 07/09 completed Not Available Not Available Not Available azithromyci n 250 mg tablet 03/24 completed Not Available Not Available Not Available prednisone 20 mg tablet Take 1 tablet twice a day by oral route for 5 days. 03/24 completed Not Available Not Available Not Available penicillin V potassium 500 mg tablet 03/24 completed Not Available Not Available Not Available amlodipine 2.5 mg tablet Take 1 tablet every day by oral route for 90 days. active Not Available Not Available No t Available clopidogrel 75 mg tablet Take 1 tablet every day by oral route for 90 days. active Not Available Not Available No t Available allopurinol 100 mg tablet Take 1 tablet every day by oral route for 90 days. active Not Available Not Available No t Available triamcinolo ne acetonide 0.1 % topical cream 07/09 completed Not Available Not Available Not Available tamsulosin 0.4 mg capsule Take 1 capsule every day by oral route. active Not Available Not Available No t Available metformin 1,000 mg tablet Take 1 tablet twice a day by oral route for 90 days. active Not Available Not Available No t Available fluticasone 500 mcg-salmete rol 50 mcg/dose blistr powdr for inhalation Inhale 2 puffs as needed by inhalatio n route for 30 days. active Not Available Not Available No t Available hydrocortis one 2.5 % topical cream active Not Available Not Available Not Available dexamethaso ne sodium phosphate 4 mg/mL injection solution Inject 1 mL every day by intramusc ular route. 2024 active Not Available Not Available Not Avai lable levofloxaci n 750 mg tablet 03/24 completed Not Available Not Available Not Available benazepril 40 mg tablet Take 1 tablet every day by oral route for 90 days. active Not Available Not Available No t Available cefdinir 300 mg capsule Take 1 capsule every 12 hours by oral route for 7 days. 04/06 completed Not Available Not Available Not Available finasteride 5 mg tablet Take 1 tablet every day by oral route for 90 days. active Not Available Not Available No t Available amoxicillin 875 mg-potassiu m clavulanate 125 mg tablet 03/24 completed Not Available Not Available Not Available neomycin-po lymyxin-hyd rocort 3.5 mg-10,000 unit/mL-1 % ear drops,susp INSTILL 4 DROPS INTO AFFECTED EAR(S) BY OTIC ROUTE 3 TIMES PER DAY active Not Available Not Available No t Available hydrochloro thiazide 12.5 mg tablet qd active Not Available Not Available Not Available Jardiance 25 mg tablet Take 1 tablet every day by oral route for 90 days. active Not Available Not Available No t Available Flonase Allergy Relief 50 mcg/actuati on nasal spray,suspe nsion [place] 1 spray every day by intranasa l route. 2024 active Not Available Not Available Not Griselda labjaymie Repatha SureClick 140 mg/mL subcutaneou s pen injector Inject 140 mg every 2 weeks by sub-q route for 28 days. active Not Available Not Available No t Available Linzess 72 mcg capsule Take 1 capsule every day by oral route for 30 days. active Not Available Not Available No t Available Voltaren Arthritis Pain 1 % topical gel APPLY 2 GRAMS TO THE AFFECTED AREA(S) BY TOPICAL ROUTE 3 TIMES PER DAY 2024 active Not Available Not Available Not Avai lable Paxlovid 300 mg (150 mg x 2)-100 mg tablets in a dose pack TAKE 3 TABLETS BY MOUTH TWICE DAILY FOR 5 DAYS 05/09 completed Not Available Not Available Not Available Vitals Date Recorded Body height Heart rate Body temperature Body mass index (BMI) Body weight Oxygen saturation Oxygen saturation in Arterial blood by Pulse oximetry Respiratory rate Pain severity - 0-10 verbal numeric rating [Score] - Reported Systolic And Diastolic Provider Name and Address Organization Details Last Updated DateTime 5 172.72 cm 65 /min 97 [degF] 28.7 kg/m2 92451.9 6 g 97 % 97 % 18 /min 5 138/78 mm[Hg] Blanca Null [facility] 5 09:54:40 Date Recorded Body height Body mass index (BMI) Body weight Respiratory rate Oxygen saturation Oxygen saturation in Arterial blood by Pulse oximetry Heart rate Body temperature Systolic And Diastolic Provider Name and Address Organization Details Last Updated DateTime 5 172.72 cm 29 kg/m2 83322.1 4 g 18 /min 98 % 98 % 68 /min 97.9 [degF] 134/82 mm[Hg] Alecia Desir [facility] 5 09:25:37 Date Recorded Body height Body mass index (BMI) Body weight Body temperature Heart rate Oxygen saturation Oxygen saturation in Arterial blood by Pulse oximetry Respiratory rate Pain severity - 0-10 verbal numeric rating [Score] - Reported Systolic And Diastolic Provider Name and Address Organization Details Last Updated DateTime 4 172.72 cm 28.9 kg/m2 98850.5 5 g 98 [degF] 61 /min 96 % 96 % 18 /min 0 112/70 mm[Hg] Blanca Null [facility] 4 13:33:50 Date Recorded Body height Respiratory rate Body mass index (BMI) Body weight Body temperature Heart rate Oxygen saturation Oxygen saturation in Arterial blood by Pulse oximetry Systolic And Diastolic Provider Name and Address Organization Details Last Updated DateTime 4 172.72 cm 18 /min 28.7 kg/m2 81854.9 6 g 97.6 [degF] 64 /min 97 % 97 % 122/74 mm[Hg] Alecia Desir [facility] 4 13:37:04 Date Recorded Body height Respiratory rate Body mass index (BMI) Body weight Heart rate Oxygen saturation Oxygen saturation in Arterial blood by Pulse oximetry Body temperature Systolic And Diastolic Provider Name and Address Organization Details Last Updated DateTime 4 172.72 cm 18 /min 28.1 kg/m2 06886.5 9 g 84 /min 97 % 97 % 97.7 [degF] 134/80 mm[Hg] Alecia Thang [place] - [facility] 4 15:10:33 Social History Question Answer Notes LastModified by Organizat ion Details LastModified Time Tobacco Smoking Status Former Smoker Blanca Chaka [place]ner, [place] - [facility] 03/24/2024 13:34:39 Do You Have An Advance Directive? No Information not available 09/22/2024 Are You Blind Or Do You Have Difficulty Seeing? No Information not available 09/22/2024 What Is Your Level Of Caffeine Consumption? Occasional Information not available 09/22/2024 Are You Deaf Or Do You Have Serious Difficulty Hearing? No Information not available 09/22/2024 What Type Of Diet Are You Following? REGULAR Information not available 09/22/2024 What Is The Highest Grade Or Level Of School You Have Completed Or The Highest Degree You Have Received? [id number] Information not available 09/22/2024 Have There Been Any Changes To Your Family Or Social Situation? No Information not available 09/22/2024 What Is The Fluoride Status Of Your Home? Unknown Information not available 09/22/2024 When Did You Quit Smoking? 16+yearssincel astcigarette Information not available 09/22/2024 Do You Have A Medical Power Of Liquid Center Assembler? No Information not available 09/22/2024 What Was The Date Of Your Most Recent Tobacco Screening? 09/22/2024 Information not available 09/22/2024 What Is Your Current Pack Years? 10-19packyears Information not available 09/22/2024 What Is Your Relationship Status? Information not available 09/22/2024 Do You Have Smoke And Carbon Monoxide Detectors In Your Home? Yes Information not available 09/22/2024 At What Age Did You Start Smoking Tobacco? 16 Information not available 09/22/2024 How Much Tobacco Do You Smoke? 1 PPD Information not available 09/22/2024 Has Tobacco Cessation Counseling Been Provided? No Information not available 09/22/2024 How Many Years Have You Smoked Tobacco? 18 Stopped At Age 35 Information not available 09/22/2024 Do You Have Difficulty Walking Or Climbing Stairs? No Information not available 09/22/2024 Sex: Male Functional Status Question Answer Note LastModified by Organizat ion Details LastModified Time How many times per week do you consume alcohol? Less than 1 time per week Information not available 09/22/2024 Do you use any illicit or recreational drugs? No Information not available 09/22/2024 Do you or have you ever used any other forms of tobacco or nicotine? No Information not available 09/22/2024 What is your level of alcohol consumption? Occasional Information not available 09/22/2024 Are you currently employed? No Information not available 09/22/2024 Do you have transportation difficulties? No Information not available 09/22/2024 Are you able to walk independently without assistance or assistive devices? YESWOREST Information not available 09/22/2024 Do you have difficulty doing errands alone? No Information not available 09/22/2024 Are you able to care for yourself independently? Yes Information not available 09/22/2024 Do you have difficulty dressing, bathing, grooming, or toileting? No Information not available 09/22/2024 What is your exercise level? None Information not available 09/22/2024 Mental Status Question Answer Note LastModified by Organizat ion Details LastModified Time Do you feel stressed (tense, restless, nervous, or anxious, or unable to sleep at night)? [id number] Information not available 09/22/2024 Do you have difficulty concentrating, remembering or making decisions? No Information no t available 09/22/2024 Family History Relationship Description Onset Age of this Age Resolved Age Notes LastModified by Organization Details LastModified Time Father No current problems or disability [email or web address] Not available 09/22 09:28:20 Mother No current problems or disability bstears Not available 09/22 09:28:20 Medical History No medical history recorded. Immunizations Vaccine Type Date Status Note Provider Nam e and Address Organization Details Recorded Time zoster recombinant 4 completed Blanca [place] [facility] 03/24/2024 13:27:12 Influenza, high-dose, trivalent, PF 4 completed Alecia Des[place] [facility] 03/09/2024 09:24:59 Rabies - IM fibroblast culture 2 completed Blanca [place] [facility] 05/09/2023 11:10:03 Rabies - IM fibroblast culture 2 completed Bl[place] [facility] 05/09/2023 11:10:03 Rabies - IM fibroblast culture 2 completed Bl[place] [facility] 05/09/2023 11:10:03 Rabies - IM fibroblast culture 2 completed Bl[place] [facility] 05/09/2023 11:10:03 COVID-19, mRNA, LNP-S, PF, 100 mcg/0.5mL dose or 50 mcg/0.25mL dose 2 completed Bl[place] [facility] 05/09/2023 11:10:04 pneumococcal polysaccharide PPV23 3 completed Bl[place] [facility] 05/09/2023 11:10:04 Tdap 6 completed Bl[place] [facility] 05/09/2023 11:10:04 Td (adult) 2 completed Bl[place] [facility] 05/09/2023 11:10:04 Td (adult), 2 Lf tetanus toxoid, preservative free, adsorbed 7 completed Bl[place] [facility] 05/09/2023 11:10:04 zoster recombinant 4 completed Blanca Null null, [place] - [facility] 07/18/2023 12:03:33 Past Encounters Encounter ID Performer Location Encounter Start Date Encounter Closed Date Diagnosis/Indication Diagnosis SNOMED-CT Code Diagnosis ICD10 Code Diagnosis IMO Codes Diagnosis Note [id number] Donaldo Gilliland [address] [address] 05/09/2023 10:39:17 05/09/2023 12:11:18 Upper respiratory infection 62399430 J06.9 no sign of a bacterial infection. likely viral. viruses can take 7-14 days to run their course. nasal saline and bulb syringe to remove nasal drainage to help with congestion . monitor temp. Tylenol or Motrin as needed for pain or fever. encourage fluids, water, Gatorade, power aide, Pedialyte if infant/tod dler/child warm salt water gargles warm fluids sore throat lozenges sleep elevated humidifier /vaporizer follow up immediatel y for new or worsening symptoms or no noticeable improvemen t over the next 48-72 hours [id number] Donaldo Gilliland [address] [address] 07/18/2023 12:00:13 07/18/2023 12:16:48 Upper respiratory infection 22225118 J06.9 [id number] [facility] [address] [address] 03/09/2024 09:17:31 03/09/2024 09:37:23 Influenza vaccine needed 6824216313 106 Z23 [id number] [facility] [address] [address] 03/24/2024 13:22:08 03/24/2024 14:23:01 Acute maxillary sinusitis 16262565 J01.00 monitor glucose closeif symptoms worsen or do not improve return [id number] [facility] [address] [address] 04/06/2024 13:14:25 04/06/2024 14:04:25 Acute maxillary sinusitis 65697906 J01.00 if symptoms worsen or do not improve return [id number] [facility] [address] 04/20/2024 14:47:57 04/20/2024 15:22:09 Otitis externa of left ear 3413826837 230737 H60.92 [id number] Donaldo Gilliland APRN [address] [address] 07/09/2024 09:27:02 07/09/2024 10:30:53 Neck pain 32886291 M54.2 [id number] Donaldo Gilliland APRN [address] [address] 09/22/2024 09:12:21 09/22/2024 10:08:36 Seasonal allergic rhinitis 075623257 J30.2 [id number] discussed to start claritin otc Health Concerns Section Related Observation LastModified by Organization Detai ls LastModified Time None Recorded Concern Status LastModified by Organization Details LastModified Time None Recorded Advance Directives Directive N: Payers Insurance Date Sequence Insurance Name Policy Number Policy Beaulieu Covered Member ID Beaulieu Member ID Guarantor Name 05/09/2023 1 [place]MED[place]ACEMENT HMO[place] Forest Montoya [id number] Forets Montoya 10/27/2024 1 [place] Forest Montoya [id number] Forest Alex Montoya 10/27/2024 [employer] [place] [facility] OF [facility] (MEDICARE) Forest Montoya [id number] Forest E Lindsay 10/27/2024 2 [place] [id number] Foresthilario Montoya [id number] Foresthilario Montoya Notes Date Note Type Note Provider Name and Address Organization Details Recorded Time 03/24/2024 text/html ROS as noted in the HPI 83 yr old male presents for sinus congestion, sinus tenderness,pressur e, chest congestion and generally feeling unwell since last night. Donaldo Gilliland APRN [address], [place], [address], [place] - [facility] 03/24/2024 14:19:45 04/06/2024 text/html ROS as noted in the [facility] 83 year old male who presents to the office today with concerns ofcontinued cough, sinus pressure,tendernes s,thick nasal and chest congestion. Salazarhonganusha BaronORACIO phelan [address], [place], [address], [place] - [facility] 04/06/2024 13:59:58 04/20/2024 text/html ROS as noted in the HPI 83 year old male who presents to the office today with concerns ofleft ear pain when laying on left side. 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 pt states this flares up at times and the steroids and shot helps calm it down Salazaran Gilliland APRN [address], [place], [address], [place] [facility] 07/09/2024 10:23:58 09/22/2024 text/html 84 year old male who presents to the office today with concerns ofcough and congestion, sinus problems, nose itches Salazaran ORACIO phelan [address], [place], [address], [place] - [facility] 09/22/2024 09:55:59
--- OUTSIDE RECORDS SUMMARY | 2025-02-09 01:59 | XMS_ITS | Encounter Summary ---
Author Organization Healthcare Address [address] [place] [address] Care Team Providers Care Hand Patcher Name Role Phone Clark Santillan MD Primary Care Provider [phone] Encounter Details Date Type Department Care Team (Latest Contact Info) Description 01/29/2025 Travel Social History Tobacco Use Types Packs/Day Years [...] Care Team (Late st Contact Info) Description 03/19/2025 10:20 AM EST Office Visit [facility] [address] [place] [address] Niesha Rose, HOSPITAL CLEANER [address] [address] documented as of this encounter Visit Diagnoses Not on filedocumented in this encounter Additional Health Concerns Assessment Noted Time A fall risk assessment has been complete d for the patient 06/21/2022 2:34 PM EST A Body Mass Index follow-up plan has been documented for the patient 01/29/2025 1:29 PM EDT documented as of this encounter Care Teams Hand Patcher Relationship Specialty Start Date End Date Clark Santillan MD [address] [place] [address] [address] [place] [facility] PCP - General 01/24/22 documented as of this encounter
--- OUTSIDE RECORDS SUMMARY | 2025-02-09 01:59 | XMS_ITS | Clinical Summary ---
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 Essential [...] history exists Medical Devices Implanted Type Area Forestry Instructor Device Identifier Shelf Expiration Date Model / Serial / Lot Vlv Heart Trnscath Sapien3 26mm - [id number] - [id number] Implanted:Qty: 1 on 08/27/2019 by Mustapha Villela MD at [facility] Implant N/A: Aorta [employer] T[employer]HA 02/03/2021 [id number] / [id number] / Stnt Xience Fatemeh Everolimus Josemanuel 3x23mm - [id number] Implanted:Qty: 1 on 08/18/2019 by Pablo Stevens MD at [facility] [employer] [id number] / / [id number] Procedures Procedure Name Priority Date/Time Associated Diagnosis Comments HEMOGLOBIN A1C Routine 08/26/2019 11:42 AM EDT Aortic valve disorder from Last 3 Months or Most Recently Relevant to Health Maintenance Results * (ABNORMAL) Hemoglobin A1c (08/26/2019 11:42 AM EDT) Hemoglobin A1C 8.60(H) 4.80 - 5.60 % 08/26/2019 12:24 PM EDT [facility] Blood Venipuncture / Unknown 08/26/2019 11:42 AM EDT 08/26/2019 12:04 PM EDT Narrative [facility] - 08/26/2019 12:24 PM EDT Hemoglobin A1C Ranges: Increased Risk for Diabetes 5.7% to 6.4% Diabetes >= 6.5% Diabetic Goal < 7.0% us Dede Montoya STERILE PROCESSING TECH LAB BLOOD ORDERABLES Final R esult [facility]
[address] [place] [address], from Last 3 Months or Most Recently Relevant to Health Maintenance Insurance MEDICARE A & B [facility] Advance Directives * CPR (Attempt to Resuscitate) (Latest Code Status on File) Date Activated Date Inactivated Comments 08/27/2019 8:41 AM 08/28/2019 1:38 PM Question Answer Comments Code Status (Patient has no pulse and is not breathing): CPR (Attempt to Resuscitate) Medical Interventions (Patie nt has pulse or is breathing): Full Care Teams Dining Room Busser Relationship Specialty Start Date End Date Clark Santillan MD [address] [place] [address] [facility] [place] [address] PCP - General Internal Medicine 08/26/19
--- OUTSIDE RECORDS SUMMARY | 2025-02-09 01:59 | XMS_ITS | Clinical Summary ---
Author Organization [facility] Address [address] [place] [address] Care Team Providers Care Psych Arnp Name Role Phone Clark Santillan MD Primary Care Provider [phone] Allergies Active Allergy Reactions Criticality Noted Date Comments Ceftriaxone Swelling High 01/25/2022 Eye swelling Medications allopurinol (Zyloprim) 100 MG tablet 2 Active aspirin 81 MG EC tablet Take 81 mg by mouth 1 (one) time each day. Active Jardiance 25 MG 2 Active Repatha SureClick 140 MG/ML solution auto-injector 2 Active Linzess 72 MCG capsule capsule 2 Active metFORMIN (Glucophage) 1000 MG tablet 2 Active oxazepam (Serax) 10 MG capsule 2 Active clopidogrel (Plavix) 75 MG tablet 3 Active amoxicillin-clav ulanate (Augmentin) 875-125 MG tablet 3 Active predniSONE (Deltasone) 10 MG tablet 3 Active finasteride (Proscar) 5 MG tablet Take 1 tablet by mouth daily. Active Flonase Allergy Relief 50 MCG/ACT nasal spray Administer 1 spray into each nostril daily. 5 Active fluticasone-salm eterol (Advair Diskus) 500-50 MCG/ACT diskus inhaler Inhale 1 puff daily. 5 Active tamsulosin (Flomax) 0.4 MG 24 hr capsule Take 1 capsule by mouth daily. Active amLODIPine (Norvasc) 5 MG tabletIndication s:Essential hypertension Take 1 tablet by mouth daily. 30 tablet 3 5 026 Active benazepril (Lotensin) 20 MG tabletIndication s:Essential hypertension Take 1 tablet by mouth daily. 30 tablet 3 5 026 Active benazepril (Lotensin) 40 MG tablet 2 025 Discontin ued(Dose adjustmen t) amLODIPine (Norvasc) 2.5 MG tablet Take 1 tablet by mouth. 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); Anemia, unspecified type; Essential hypertension; Diabetes mellitus due to underlying condition with diabetic chronic kidney disease, unspecified CKD stage, unspecified whether care home insulin use (CMS/[facility]); Chronic kidney disease-mineral and bone disorder; Proteinuria, unspecified type; Hyperkalemia 01/29/2025 Travel from Last 3 Months Social History Tobacco [...] Pulse 76 01/29/2025 11:16 AM EDT Temperature 36.5 C (97.7 F) 01/25/2022 11:37 AM EDT Respiratory Rate 18 01/29/2025 11:16 AM EDT Oxygen Saturation 96% 01/29/2025 11:16 AM EDT Inhaled Oxygen Concentration - - Weight 86.6 kg (191 lb) 01/29/2025 11:16 AM EDT Height 172.7 cm (5' 8 ) 01/29/2025 11:16 AM EDT Body Mass Index 29.04 01/29/2025 11:16 AM EDT Plan of Treatment Upcoming Encounters Date Type Department Care Team (Late st Contact Info) Description 03/19/2025 10:20 AM EST [facility] [address] [place] [address] Niesha Rose, ORACIO [address] [address] Health Maintenance Due Date Last Done Comments [facility]-Medicare Annual Wellness (AWV) 1940 [facility]-Infant/Child/Adol SDOH Screenings 1940 Diabetes: Dental Exam 1950 [facility]- SDOH Screenings 1958 [facility]-Adult SDOH Screenings 1958 [facility]-Pneumococcal Vaccine: 50+ Years (2 of 2 - PCV) 03/30/2014 03/30/2013 [facility]-RSV Vaccine: 60+ Years or (1 - 1-dose 75+ series) 09/19/2015 [facility]-Diabetes: Hemoglobin A1C 02/23/2020 08/26/2019 [id number] Vaccine (2 - Moderna risk series) 01/10/2022 12/13/2021 [facility]-Depression Screening 06/21/2023 06/21/2022 [facility]-Influenza Vaccine (#1) 2025 03/09/2024 [facility]-DTaP,Tdap,and Td Vaccines (3 - Td or Tdap) 05/08/2031 05/08/2021, 06/03/2015, 10/27/1996 [facility]-Zoster Vaccines Completed 08/21/2023, [facility]-Obesity Intervention Completed 025, 12/19/2022, 06/21/2022, Additional history exists HPV Vaccines Aged Out No longer eligi [...] age to complete this topic Insurance MEDICARE [facility] Care Teams Psych Arnp Relationship Specialty Start Date End Date Clark Santillan MD [address] [facility] [address] [place] [address] PCP - General 01/24/22
--- OUTSIDE RECORDS SUMMARY | 2025-02-09 01:59 | XMS_ITS | Encounter Summary ---
Author Organization [facility] Address [address] [place] [address] Care Team Providers Care Bindery Technician Name Role Phone Clark Santillan MD Primary Care Provider Encounter Details Date Type Department Care Team (Late Contact Info) Description 06/06/2022 Orders Only External Location [address] [place] [phone] Provider, External Social History Tobacco Use Types [...] Department Care Team (Late Contact Info) Description 03/19/2025 10:20 AM EST Office Visit [facility] [address] [place] [address] Niesha Rose, FURNACE FILLER [address] [address] documented as of this encounter [...] documented as of this encounter Care Teams Bindery Technician Relationship Specialty Start Date End Date Clark Santillan MD [address] [place] [address] [address] [place] [address] PCP - General 01/24/22 documented as of this encounter
== END 2025-02-08 23:59 ==
LOC: LAB.DROPOF 02-09 01:57
PROVIDERS: PCP Internal Medicine; Visit Provider Internal Medicine
DX: I12.9 Hypertensive chronic kidney disease with stage 1 through stage 4 chronic kidney disease, or unspecified chronic kidney disease (principal); N18.9 Chronic kidney disease, unspecified; E87.5 Hyperkalemia; E78.5 Hyperlipidemia, unspecified; E11.59 Type 2 diabetes mellitus with other circulatory complications
CPT/HCPCS: 80048; 80061; 83036

== ENCOUNTER 2025-03-11 11:15 | Outpatient (CLI) | payer MEDICARE, BC, SELFPAY ==
--- OUTSIDE RECORDS SUMMARY | 2025-01-29 10:20 | XMS_ITS | Encounter Summary ---
Author Organization [facility] Address [address] [address] Care Team Providers Care Court Crier Name Role Phone Clark Santillan MD Primary Care Provider [phone] Reason for Referral * Consultation (Routine) - Authorized Specialty Diagnoses / Procedures Referred By Contac t Referred To Contact Diagnoses Stage 3b chronic kidney disease (CMS/HCC) Essential hypertension Hyperkalemia Niesha Rose APRN [address] [address] Phone: tel: fax: Referral ID Status Reason Start Date Expiration Date V isits Requested Visits Authorized [id number] Authorized 01/29/2025 07/31/2026 1 1 Reason for Visit * Reason Comments Consult Pt 84 year old male that presents to the clinic on this date for a new patient consult. Pt denies pain at the current moment. * Consultation (Routine) - Closed Specialty Diagnoses / Procedures Referred By Contac t Referred To Contact Nephrology Diagnoses Stage 3b chronic kidney disease (CMS/HCC) Reese Valdez MD [address] [place] [phone] Phone: tel: fax: Referral ID Status Reason Start Date Expiration Date V isits Requested Visits Authorized [id number] Closed Specialty Services Required 07/31/2024 01/30/2026 1 1 Encounter Details Date Type Department Care Team (Late st Contact Info) Description 01/29/2025 11:20 AM EDT Office Visit [facility] [address] [place] [address] Niesha Rose, EXPORT ADMINISTRATOR [address] [address] Stage 3b chronic kidney disease (CMS/HCC) (Primary Dx); Anemia, unspecified type; Essential hypertension; Diabetes mellitus due to underlying condition with diabetic chronic kidney disease, unspecified CKD stage, unspecified whether fpc insulin use (CMS/HCC); Chronic kidney disease-mineral and bone disorder; Proteinuria, unspecified type; Hyperkalemia Social History Tobacco Use Types Packs/Day Years [...] on file documented as of this encounter Last Filed Vital Signs Vital Sign Reading Time Taken Comments Blood Pressure 138/79 01/29/2025 11:16 AM EDT Pulse 76 01/29/2025 11:16 AM EDT Temperature - - Respiratory Rate 18 01/29/2025 11:16 AM EDT Oxygen Saturation 96% 01/29/2025 11:16 AM EDT Inhaled Oxygen Concentration - - Weight 86.6 kg (191 lb) 01/29/2025 11:16 AM EDT Height 172.7 cm (5' 8 ) 01/29/2025 11:16 AM EDT Body Mass Index 29.04 01/29/2025 11:16 AM EDT documented in this encounter Miscellaneous Notes * Progress Notes - Niesha Rose APRN - 01/29/2025 11:20 AM EDT Nephrology Outpatient Consult Note Reason for referral: CKD evaluation Referring Provider: Clark Santillan MD HPI: Forest Montoya is a 84 y.o. male with PMH of DM, CAD, HTN, COPD, Ckd, Gout, CAD, vascular disease, , and BPH who presents as a new consult at the request of Clark Santillan MD Patient with long history of renal disease, baseline creatinine 1.6-1.8 for several years. He does have + neuropathy with long history of diabetes. Uncertain most recent A1c. Long history of hypertension, notes has been stable at home with BP 130s. No known family history of renal disease, no NSAIDuse. He has had long history of hyperkalemia. Denies hematuria, dysuria, abd pain, SOA, CP. I have personally reviewed records from referring provider and other consultants. REVIEW OF SYSTEMS A complete 14-point review of systems was obtained and is negative except as reported in the HPI Past Medical History[1] Surgical History[2] Family History[3] Social History Tobacco Use Smoking status: Former Current packs/day: 0.00 Average packs/day: 0.5 packs/day for 10.0 years (5.0 ttl pk-yrs) Types: Cigarettes Start date: 12/31/1961 Quit date: 01/01/1972 Years since quittin.1 Smokeless tobacco: Never Substance Use Topics Alcohol use: Never Medications Current Medications[4] Allergies[5] PHYSICAL EXAMINATION Visit Vitals BP 138/79 (BP Location: Right arm, Patient Position: Sitting, BP Cuff Size: Adult long) Pulse 76 Resp 18 Ht 1.727 m (5' 8 ) Wt 86.6 kg (191 lb) SpO2 96% BMI 29.04 kg/m?? Smoking Status Former BSA 2.04 m?? GA: well developed, well nourished, conversant, NAD EYES: Anicteric sclera, no injection, no discharge HENT: Head is normocephalic and atraumatic. Mucous membranes are moist. NECK: Supple. No visible masses or thyromegaly RESP: Normal resp effort. Lungs clear to auscultation bilaterally. No wheezing, rhonchi or crackles CV: Heart RRR, no murmurs or rubs GI: Abdomen soft, non tender, and non distended. Positive bowel sounds. : No suprapubic tenderness, no CVA tenderness MSK/Ext: No edema. No joint swelling. No cyanosis or clubbing NEURO: Grossly intact. No focal deficits. Cooperative PSYCH: Appropriate mood and affect, AAO SKIN: Normal temperature. No rash or ulcers. No jaundice LAB AND IMAGING RESULTS I have independently reviewed and interpreted the test results and discussed with patient. Labs scanned in to media tab of [employer] from an outside facility. Labs completed on 01/25/25 ASSESSMENT/PLAN CKD3b Baseline creatinine 1.6-1.8, currently stable at 1.7 egfr 39 DM- unsure A1c, goal <7 HTN- close to goal of < 130/80 Proteinuria- U pr/cr 2.2, elevated on benazapril and Jardiance Hyperkalemia- chronic CKD-BMD- pth 136, vit d 49 Had a lengthy discussion with patient regarding CKD and disease progression. Patient with greater risk of disease progression, 2.2gm proteinuria. Agree with Carolina. Discussed need for glucose control. Reinforced A1c goal of less than 7. Given creatinine fluctuations up to >1.8 to discuss discontinuation of metformin with PCP with initiation of alternate agents for improved glucose control,including insulin. Patient with chronic hyperkalemia, risks of SCD reviewed. Reviewed high potassium foods with list and discusssed low K diet in great detail. Will reduce Benazepril to 20mg and increase amlodipine to 5mg. To increase to 10mg amlodipine if BP > 130/80. Discussed calling with BP in one week, however patient notes he will be seeing PCP within that time. Gave patient written planof medication changes, notes he will share with PCP this upcoming week. If K remains elevated despite med decrease and diet changes would start on Lokelma. Repeat potassium 2 weeks. RTC in 6-8weeks, labs in 2 weeks and prior to appt Niesha Rose APRN [1] Past Medical History: Diagnosis Date Aortic stenosis Arthritis BPH (benign prostatic hyperplasia) [2] Past Surgical History: Procedure Laterality Date CATARACT EXTRACTION, BILATERAL 05/2022 PROSTATE SURGERY [3] Family History Family history unknown: Yes [4] Current Outpatient Medications Medication Sig Dispense Refill allopurinol (Zyloprim) 100 MG tablet benazepril (Lotensin) 40 MG tablet clopidogrel (Plavix) 75 MG tablet Flonase Allergy Relief 50 MCG/ACT nasal spray Administer 1 spray into each nostril daily. fluticasone-salmeterol (Advair Diskus) 500-50 MCG/ACT diskus inhaler Inhale 1 puff daily. Jardiance 25 MG oxazepam (Serax) 10 MG capsule Repatha SureClick 140 MG/ML solution auto-injector amLODIPine (Norvasc) 2.5 MG tablet Take 1 tablet by mouth. amoxicillin-clavulanate (Augmentin) 875-125 MG tablet aspirin 81 MG EC tablet Take 81 mg by mouth 1 (one) time each day. (Patient not taking: Reported on12/19/2022) finasteride (Proscar) 5 MG tablet Take 1 tablet by mouth daily. Linzess 72 MCG capsule capsule metFORMIN (Glucophage) 1000 MG tablet (Patient not taking: Reported on 01/29/2025) predniSONE (Deltasone) 10 MG tablet tamsulosin (Flomax) 0.4 MG 24 hr capsule Take 1 capsule by mouth daily. No current facility-administered medications for this visit. [5] Allergies Allergen Reactions Rocephin [Ceftriaxone] Swelling Eye swelling documented in this encounter Plan of Treatment Upcoming Encounters Date Type Department Care Team ([facility] st Contact Info) Description 03/19/2025 10:20 AM EST Office Visit [place] [id number] [facility] [facility] [place] [address] Niesha Rose APRN [address] [address] Scheduled Orders Name Type Priority Associated Diagnoses Orde r Schedule Renal Function Panel, Plasma Lab Routine Stage 3b chronic kidney disease (CMS/HCC) Expected: 01/29/2025 (Approximate), Expires: 07/29/2026 CBC W/O Differential Lab Routine Stage 3b chronic kidney disease (CMS/HCC) Expected: 01/29/2025 (Approximate), Expires: 07/29/2026 Urinalysis with reflex microscopic (Culture NOT Included) Lab Routine Stage 3b chronic kidney disease (CMS/HCC) Expected: 01/29/2025 (Approximate), Expires: 07/29/2026 Creatinine, Random, Urine Lab Routine Stage 3b chronic kidney disease ([facility]/HCC) Expected: 01/29/2025 (Approximate), Expires: 07/29/2026 Albumin-creatinine ratio, urine, random Lab Routine Stage 3b chronic kidney disease ([facility]/HCC) Expected: 01/29/2025 (Approximate), Expires: 07/29/2026 Protein, Random, Urine with Creatinine Lab Routine Stage 3b chronic kidney disease ([facility]/HCC) Expected: 01/29/2025 (Approximate), Expires: 07/29/2026 Renal function panel Lab Routine Hyperkalemia Expected: 02/12/2025 (Approximate), Expires: 08/02/2026 Scheduled Referrals Name Type Priority Associated Diagnoses Order Schedule Follow Up Nephrology Outpatient Referral Routine Stage 3b chronic kidney disease ([facility]) Essential hypertension Hyperkalemia Expected: 03/31/2025 (Approximate), Expires: 02/28/2026 documented as of this encounter Visit Diagnoses Diagnosis Stage 3b chronic kidney disease ([facility])- Primary Anemia, unspecified type Essential hypertension Unspecified essential hypertension Diabetes mellitus due to underlying condition with diabetic chronic kidney disease, unspecified CKD stage, unspecified whether intermediate teacher insulin use Chronic kidney disease-mineral and bone disorder Proteinuria, unspecified type Hyperkalemia Hyperpotassemia documented in this encounter Additional Health Concerns Assessment Noted Time A fall risk assessment has been complete d for the patient 06/21/2022 2:34 PM EST A Body Mass Index follow-up plan has been documented for the patient 01/29/2025 1:29 PM EDT documented as of this encounter Care Teams Court Crier Relationship Specialty Start Date End Date Clark Santillan MD [address] [place] [address] [address] [place] [address] PCP - General 01/24/22 documented as of this encounter
[2025-03-11 14:22] LABS: Anion Gap 12.8 mEq/L (5-15); Blood Urea Nitrogen 22 mg/dl (9-20); Calcium 9.9 mg/dl (8.4-10.2); Carbon Dioxide 26 mmol/L (22.0-30.0); Chloride 102 mmol/L (98-107); Creatinine,Serum 1.90 mg/dl (0.66-1.25); Estimated Glomerular Filt Rate 34 ml/min (>60); GFR (African American) 41 ML/MIN (>60); Glucose 196 mg/dl (74-100); Potassium 4.8 mmoL/L (3.5-5.1); Sodium 136 mmol/L (136-145)
--- OUTSIDE RECORDS SUMMARY | 2025-03-11 19:58 | XMS_ITS | Clinical Summary ---
Author Organization [facility] Address [address] [place] [address] Care Team Providers Care Energy Advisor Name Role Phone Clark Santillan MD Primary Care Provider [phone] Allergies No known active allergies Medications aspirin [...] artery disease of n ative artery of [place] heart with stable angina pectoris 08/10/2019 Essential [...] history exists Medical Devices Implanted Type Area Healthcare Management Consultant Device Identifier Shelf Expiration Date Model / Serial / Lot Vlv Heart Trnscath Sapien3 26mm - [id number] - [id number] Implanted:Qty: 1 on 08/27/2019 by Mustapha Villela MD at [facility] Implant N/A: Aorta [employer] T[employer]HA 02/03/2021 [id number] / [id number] / Stnt Xience Fatemeh Everolimus Josemanuel 3x23mm - [id number] Implanted:Qty: 1 on 08/18/2019 by Pablo Stevens MD at [facility] [employer] [id number] / / [id number] Procedures Procedure Name Priority Date/Time Associated Diagnosis Comments HEMOGLOBIN A1C Routine 08/26/2019 11:42 AM EDT Aortic valve disorder from Last 3 Months or Most Recently Relevant to Health Maintenance Results * (ABNORMAL) Hemoglobin A1c (08/26/2019 11:42 AM EDT) Hemoglobin A1C 8.60(H) 4.80 - 5.60 % 08/26/2019 12:24 PM EDT [facility] Blood Venipuncture / Unknown 08/26/2019 11:42 AM EDT 08/26/2019 12:04 PM EDT Narrative [facility] - 08/26/2019 12:24 PM EDT Hemoglobin A1C Ranges: Increased Risk for Diabetes 5.7% to 6.4% Diabetes >= 6.5% Diabetic Goal < 7.0% us Dede Montoya [employer] [facility] BLOOD ORDERABLES Final R esult [facility]
[address] [place] [address], from Last 3 Months or Most Recently Relevant to Health Maintenance Insurance MEDICARE A & B [facility] Advance Directives * CPR (Attempt to Resuscitate) (Latest Code Status on File) Date Activated Date Inactivated Comments 08/27/2019 8:41 AM 08/28/2019 1:38 PM Question Answer Comments Code Status (Patient has no pulse and is not breathing): CPR (Attempt to Resuscitate) Medical Interventions (Patie nt has pulse or is breathing): Full Care Teams Energy Advisor Relationship Specialty Start Date End Date Clark Santillan MD [address] [place] [address] [address] [facility] [place] [address] PCP - General Internal Medicine 08/26/19
--- OUTSIDE RECORDS SUMMARY | 2025-03-11 19:58 | XMS_ITS | Encounter Summary ---
Author Organization Healthcare Address [address] [place] [address] Care Team Providers Care Press Reader Name Role Phone Clark Santillan MD Primary Care Provider [phone] Encounter Details Date Type Department Care Team (Late Contact Info) Description 06/06/2022 Orders Only External Location [address] [place] [phone] Provider, External Social History Tobacco Use Types [...] Description 03/19/2025 10:20 AM EST Office Visit [facility] [address] [place] [address] Niesha Rose, ASSOCIATE [employer] [address] [address] documented as of this encounter Procedures Procedure Name Priority Date/Time Associated Diagnosis Comments MR ABDOMEN OUTSIDE IMAGES 06/06/2022 6:24 PM EST documented in this encounter Results * MR ABDOMEN OUTSIDE IMAGES (06/06/2022 6:24 PM EST) Anatomical Region Laterality Modality Magnetic Resonan ce 06/06/2022 6:2 4 PM EST us External Provider IMG MRI PROCEDURES Final Resul t documented in this encounter Visit Diagnoses Not on filedocumented in this encounter Additional Health Concerns Assessment Noted Time A fall risk assessment has been complete d for the patient 02/28/2022 11:21 AM EDT documented as of this encounter Care Teams Press Reader Relationship Specialty Start Date End Date Clark Santillan MD [address] [place] [address] [address] [place] [address] PCP - General 01/24/22 documented as of this encounter
--- OUTSIDE RECORDS SUMMARY | 2025-03-11 19:58 | XMS_ITS | Clinical Summary ---
Author Organization Healthcare Address [address] [place] [address] Care Team Providers Care Lpn Instructor Name Role Phone Clark Santillan MD Primary Care Provider [phone] Allergies Active Allergy Reactions Criticality Noted Date [...] clopidogrel (Plavix) 75 MG tablet 3 Active amoxicillin-clavu lanate (Augmentin) 875-125 MG tablet 3 Active predniSONE (Deltasone) 10 MG tablet 3 Active finasteride (Proscar) 5 MG tablet Take 1 tablet by mouth daily. Active Flonase Allergy Relief 50 MCG/ACT nasal spray Administer 1 spray into each nostril daily. 5 Active fluticasone-salme terol (Advair Diskus) 500-50 MCG/ACT diskus inhaler Inhale 1 puff daily. 5 Active tamsulosin (Flomax) 0.4 MG 24 hr capsule Take 1 capsule by mouth daily. Active amLODIPine (Norvasc) 5 MG tabletIndications :Essential hypertension Take 1 tablet by mouth daily. 30 tablet 3 5 01/30/20 Active benazepril (Lotensin) 20 MG tabletIndications :Essential hypertension Take 1 tablet by mouth daily. 30 tablet 3 5 01/30/20 Active Active Problems No known active problems Encounters Date Type Department Care Team Description 01/29/2025 11:20 AM EDT Office Visit [facility] [address] [place] [address] Niesha Rose APRN Stage 3b chronic kidney disease (CMS/HCC) (Primary Dx); Anemia, unspecified type; Essential hypertension; Diabetes mellitus due to underlying condition with diabetic chronic kidney disease, unspecified CKD stage, unspecified whether prison insulin use (CMS/HCC); Chronic kidney disease-mineral and [...] Description 03/19/2025 10:20 AM EST Office Visit [facility] [address] [place] [address] Niesha Rose, PURSE FRAMER [address] [facility] [address] [place] [address] Health Maintenance Due Date Last Done Comments [facility]-Medicare Annual Wellness (AWV) 1940 [facility]-/Child/Adol SDOH Screenings 1940 Diabetes: Dental Exam 1950 [facility]- SDOH Screenings 1958 [facility]-Adult SDOH Screenings 1958 [facility]-Pneumococcal Vaccine: 50+ Years (2 of 2 - PCV) 03/30/2014 03/30/2013 [facility]-RSV Vaccine: 60+ Years or (1 - 1-dose 75+ series) 09/19/2015 [facility]-Diabetes: Hemoglobin A1C 02/23/2020 08/26/2019 [id number] Vaccine (2 - Moderna risk series) 01/10/2022 [...] age to complete this topic Insurance MEDICARE Member Subscriber Plan / Payer (Ef fective 2006-Present) Name:Forest Montoya Member ID:[id number] Relation to Subscriber:Self Name:Forest Montoya Subscriber ID:[id number] Payer ID:MEDICARE Group ID:Not on file Type:Medicare Address: [place] [phone] [facility] Care Teams Lpn Instructor Relationship Specialty Start Date End Date Clark Santillan MD [address] [facility] [address] [place] [address] PCP - General 01/24/22
--- OUTSIDE RECORDS SUMMARY | 2025-03-11 19:58 | XMS_ITS | Encounter Summary ---
Author Organization Healthcare Address [address] [place] [address] Care Team Providers Care Pipe Production Worker Name Role Phone Clark aSntillan MD Primary Care Provider [phone] Encounter Details Date Type Department Care Team [...] Description 03/19/2025 10:20 AM EST Office Visit [facility] [address] [place] [address] Niesha Rose, MINIATURE SET BUILDER [address] [address] documented as of this encounter Visit Diagnoses Not on filedocumented in this encounter Additional Health Concerns Assessment Noted Time A fall risk assessment has been complete d for the patient 06/21/2022 2:34 PM EST A Body Mass Index follow-up plan has been documented for the patient 01/29/2025 1:29 PM EDT documented as of this encounter Care Teams Pipe Production Worker Relationship Specialty Start Date End Date Clark Santillan MD [address] [place] [address] [address] [place] [facility] PCP - General 01/24/22 documented as of this encounter
== END 2025-03-11 23:59 | disposition home or self-care (01) ==
LOC: LAB.DROPOF 19:57
PROVIDERS: PCP Internal Medicine; Visit Provider Internal Medicine
DX: I12.9 Hypertensive chronic kidney disease with stage 1 through stage 4 chronic kidney disease, or unspecified chronic kidney disease (principal); N18.32 Chronic kidney disease, stage 3b; E87.5 Hyperkalemia
CPT/HCPCS: 80048